=== PATIENT | female | born 1940 | race Caucasian/White ===

== ENCOUNTER 2016-07-19 17:15 | Emergency (ER) | payer MEDICARE, BC ==
--- NOTE | 2016-07-19 17:51 | RAD ---
HISTORY: Chest pain COMPARISONS: March 15, 2016 VIEWS:1: Single frontal portable view of the chest at 5:27 PM FINDINGS: LINES AND TUBES: None. CARDIOMEDIASTINAL SILHOUETTE: The cardiac silhouette is enlarged. The cardiomediastinal silhouette is otherwise normal for portable technique. PLEURA: The costophrenic angles are sharp. No pleural abnormalities are noted. LUNG PARENCHYMA: There is hyperinflation. ABDOMEN: The upper abdomen is clear. There is no subphrenic gas. BONES AND SOFT TISSUES: The patient is status post median sternotomy. IMPRESSION: 1. CARDIOMEGALY. 2. COPD. 3. NO ACTIVE CARDIOPULMONARY DISEASE
[2016-07-19 17:55] LABS: Hematocrit 38 % (35-47); Hemoglobin 12.6 g/dl (12.0-16.0); Mean Corpuscular HGB Conc 33 g/dl (31-36); Mean Corpuscular Hemoglobin 29 pg (27-31); Mean Corpuscular Volume 88 fL (80-97); Mean Platelet Volume 9 um3 (7.4-10.4); Red Blood Count 4.29 10^6/ul (4.0-5.4); Red Cell Distribution Width 13 % (10.5-15); White Blood Count 4.6 10^3/ul (3.5-10.8)
[2016-07-19 18:11] LABS: Albumin 3.8 g/dL (3.2-5.2); Calcium 9.5 mg/dL (8.6-10.3); EGFR African American 107.6 (>60); EGFR Non-African American 83.7 (>60); Globulin 2.3 g/dL (2-4); Magnesium 1.8 mg/dL (1.9-2.7); Total Bilirubin 1.5 mg/dL (0.2-1.0); Total Protein 6.1 g/dL (6.4-8.9)
[2016-07-19 18:46] LABS: T4 7.94 g/dL (6.09-12.23)
[2016-07-19 18:47] LABS: TSH (Thyroid Stimulating Horm) 1.58 mcIU/mL (0.34-5.60)
[2016-07-19 22:10] VITALS: BP 111/45
--- NOTE | 2016-07-19 22:14 | ED ---
Manan Romero Billy, scribed for Blaine Ayala MD on 07/19/16 at 1747 . HPI Chest Pain - HPI Summary HPI Summary: Patient is a 76 year-old female BIBA to [facility] with constant midsternal chest pain starting at 1630 today. 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 She reports feeling dizzy at onset but denies any nausea, SOB, or near-syncope. She also reports EVANS after taking NTG. She was being seen in [place] earlier today for a nuclear stress test which was positive; she was instructed to follow up with her filbert grower, Dr. Arriaga, in 3 days. PMHx of CAD. - History of Current Complaint Chief Complaint: EDChestPainROMI Time Seen by Provider: 07/19/16 17:19 Hx Obtained From: Patient Time of Onset: 16:30 Timing: Constant Initial Severity: Moderate Current Severity: Moderate Chest Pain Location: Mid Sternal Chest Pain Radiates: No Aggravating Factor(s): Nothing Alleviating Factor(s): Medication - ASA, NTG 123 Associated Signs and Symptoms: Positive: Headaches, Dizziness. Negative: Shortness of Breath, Syncope, Nausea - Additional Pertinent History Primary Care Physician: SALAS - Allergy/Home Medications Allergies/Adverse Reactions: Allergies Allergy/AdvReac Type Severity Reaction Status Date / Time Sulfa Drugs Allergy Intermediate Rash Verified 03/15/16 01:42 Adhesive Tape Allergy Rash And Verified 03/15/16 01:43 Itching Aspirin AdvReac Intermediate Stomach Verified 03/15/16 01:42 Cramps LUBRICANT Allergy See Comment Uncoded 03/15/16 01:42 Home Medications: Home Medications Cholecalciferol [Vitamin D] 1,000 unit PO DAILY 07/19/16 [History Confirmed 03/25] Dipyridamole/Aspirin 25/200* [Aggrenox 25/200*] 1 cap.er PO BID 07/19/16 [ History Confirmed 07/19/16] Fluticasone-Salmeterol 100-50* [Advair Diskus 100-50*] 1 puff INH BID 07/19/16 [ History Confirmed 07/19/16] Mometasone NASAL (NF) [Nasonex (NF)] 1 spray BOTH NARES DAILY 07/19/16 [History Confirmed 07/19/16] Pantoprazole TAB (NF) [Protonix TAB (NF)] 40 mg PO DAILY 07/19/16 [History Confirmed 07/19/16] PMH/Surg Hx/FS Hx/Imm Hx Endocrine/Hematology History: Denies: Hx Diabetes Cardiovascular History: Reports: Hx Coronary Artery Disease, Hx Hypercholesterolemia, Hx Hypertension, Hx Valvular Heart Disease, Other Cardiovascular Problems/Disorders - MS, mitral valve replacement Denies: Hx Congestive Heart Failure, Hx Pacemaker/ICD Respiratory History: Reports: Hx Asthma GI History: Reports: Hx Gastrointestinal Bleed, Other GI Disorders - peptic ulcer disease History: Reports: Other Problems/Disorders - left kidney ca-tumor removed Denies: Hx Renal Disease Musculoskeletal History: Reports: Hx Arthritis Sensory History: Reports: Hx Contacts or Glasses Denies: Hx Hearing Aid Opthamlomology History: Reports: Hx Contacts or Glasses Neurological History: Reports: Hx Transient Ischemic Attacks (TIA) Psychiatric History: Denies: Hx Panic Disorder - Cancer History Cancer Type, Location and Year: left kidney 2006, tumor removed - Surgical History Surgery Procedure, Year, and Place: MITRAL VALVE REPAIR, appendectomy, CABG, tonsillectomy, LUMPECTOMY, KIDNEY SURGERY, partial hysterectomy,SINUS - Immunization History Date of Influenza Vaccine: fall 2014 Infectious Disease History: No Infectious Disease History: Reports: Hx Shingles Denies: Traveled Outside the US in Last 30 Days - Family History Known Family History: Positive: Cardiac Disease - Social History Alcohol Use: None Substance Use Type: Reports: None Hx Tobacco Use: No Smoking Status (MU): Never Smoked Tobacco Review of Systems Positive: Chest Pain Negative: Shortness Of Breath Negative: Nausea Neurological: Other - dizziness Positive: Headache. Negative: Syncope All Other Systems Reviewed And Are Negative: Yes Physical Exam - Summary Physical Exam Summary: VITAL SIGNS: Reviewed. GENERAL: Patient is a well developed and nourished female who is lying comfortable in the stretcher. Patient is not in any acute respiratory distress. HEAD AND FACE: No signs of trauma. No ecchymosis, hematomas or skull depressions. No sinus tenderness. EYES: PERRLA, EOMI x 2, No injected conjunctiva, no nystagmus. EARS: Hearing grossly intact. Ear canals and tympanic membranes are within normal limits. MOUTH: Oropharynx within normal limits. NECK: Supple, trachea is midline, no adenopathy, no JVD, no carotid bruit, no c- spine tenderness, neck with full ROM. CHEST: Symmetric, no tenderness at palpation LUNGS: Clear to auscultation bilaterally. No wheezing or crackles. CVS: Regular rate and rhythm, S1 and S2 present, no murmurs or gallops appreciated. ABDOMEN: Soft, non-tender. No signs of distention. No rebound no guarding, and no masses palpated. Bowel sounds are normal. EXTREMITIES: FROM in all major joints, no edema, no cyanosis or clubbing. NEURO: Alert and oriented x 3. No acute neurological deficits. Speech is normal and follows commands. SKIN: Dry and warm Triage Information Reviewed: Yes Vital Signs On Initial Exam: Initial Vitals Temp Pulse Resp BP Pulse Ox 97.6 F 64 12 146/77 98 07/19/16 17:30 07/19/16 17:30 07/19/16 17:30 07/19/16 17:30 07/19/16 17:30 Vital Signs Reviewed: Yes Diagnostics - Vital Signs Vital Signs Temp Pulse Resp BP Pulse Ox 07/19/16 17:30 97.6 F 64 12 146/77 98 - Laboratory Lab Results: Lab Results 07/19/16 07/19/16 Range/Units 17:40 17:40 WBC 4.6 (3.5-10.8) 10^3/ul RBC 4.29 (4.0-5.4) 10^6/ul Hgb 12.6 (12.0-16.0) g/dl Hct 38 (35-47) % MCV 88 (80-97) fL MCH 29 (27-31) pg MCHC 33 (31-36) g/dl RDW 13 (10.5-15) % Plt Count 149 L (150-450) 10^3/ul MPV 9 (7.4-10.4) um3 Neut % (Auto) 53.2 (38-83) % Lymph % (Auto) 32.4 (25-47) % [place] % (Auto) 9.9 H (1-9) % Eos % (Auto) 3.8 (0-6) % Baso % (Auto) 0.7 (0-2) % Absolute Neuts (auto) 2.5 (1.5-7.7) 10^3/ul Absolute Lymphs (auto) 1.5 (1.0-4.8) 10^3/ul Absolute Monos (auto) 0.5 (0-0.8) 10^3/ul Absolute Eos (auto) 0.2 (0-0.6) 10^3/ul Absolute Basos (auto) 0 (0-0.2) 10^3/ul Absolute Nucleated RBC 0 10^3/ul Nucleated RBC % 0.1 INR (Anticoag Therapy) 0.91 (0.89-1.11) Result Diagrams: 07/19/16 17:40 07/19/16 17:40 Lab Statement: Any lab studies that have been ordered have been reviewed, and results considered in the medical decision making process. - Radiology CXR Radiology Interpretation Completed By: Radiologist - Cardiomegaly. COPD. No acute cardiopulmonary disease. - EKG 1726 EKG Interpretation: NSR 63 bpm, no ST elevation Chest Pain Course/Dx - Course Assessment/Plan: Patient is a 76 year-old female BIBA to [facility] with constant midsternal chest pain starting at 1630 today. 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 She reports feeling dizzy at onset but denies any nausea, SOB, or near-syncope. She also reports EVANS after taking NTG. She was being seen in [place] earlier today for a nuclear stress test which was positive; she was instructed to follow up with her filbert grower, Dr. Arriaga, in 3 days. PMHx of CAD. Bloodwork WNL. Magnesium of 1.8 for which pt was given magnesium. Trop #1 and trop #2 are both 0.00. CXR shows cardiomegaly, COPD, no acute cardiopulmonary disease. The patient already has NTG at home and has an appointment with cardiology on Friday. Therefore pt will be discharged to follow up with cardiology on Friday. She was instructed to avoid exertion, and that if she is to develop chest pain, shortness of breath, nausea, vomiting, or diaphoresis, she is to return immediately for further workup and management. She is hemodynamically stable, A&Ox3. - Chest Pain Differential Diagnosis/HQI/PQRI: Acute MS, ACS, Angina, CHF, Chest Wall, GI Disease, Lower Respiratory Infection - Diagnoses Provider Diagnoses: Chest pain, Angina effort Discharge - Discharge Plan Condition: Stable Disposition: HOME Patient Education Materials: Chest Pain (ED) Referrals: Eveline Gordon MD [Primary Care Provider] - The documentation as recorded by the Manan de la vega Billy accurately reflects the service I personally performed and the decisions made by , Blaine Ayala MD.
== END 2016-07-19 22:20 | disposition home or self-care (01) ==
LOC: ED 17:15
DX: R07.9 Chest pain, unspecified (principal); I20.8 Other forms of angina pectoris; I51.7 Cardiomegaly; R51 Headache; J44.9 Chronic obstructive pulmonary disease, unspecified; R42 Dizziness and giddiness; R06.02 Shortness of breath
CPT/HCPCS: 36415; 71010; 80053; 82550; 82553; 83735; 83874; 83880; 84436; 84443; 84484; 85025; 85610; 93005; 99283

== ENCOUNTER 2016-10-20 02:14 | Observation (INO) | payer MEDICARE, BC ==
[2016-10-20] MEDS ORDERED: Aspirin Low Dose CHEW TAB* 81 MG PO ONE (02:22)
[2016-10-20 02:55] LABS: Hematocrit 35 % (35-47); Hemoglobin 11.6 g/dl (12.0-16.0); Mean Corpuscular HGB Conc 33 g/dl (31-36); Mean Corpuscular Hemoglobin 28 pg (27-31); Mean Corpuscular Volume 86 fL (80-97); Mean Platelet Volume 10 um3 (7.4-10.4); Red Blood Count 4.09 10^6/ul (4.0-5.4); Red Cell Distribution Width 15 % (10.5-15); White Blood Count 5.8 10^3/ul (3.5-10.8)
[2016-10-20 03:08] LABS: BUN/Creatinine Ratio 26.4 (8-20); Calcium 9.4 mg/dL (8.6-10.3); EGFR African American 143.5 (>60); EGFR Non-African American 111.6 (>60); Globulin 2.5 g/dL (2-4); Potassium 3.8 mmol/L (3.5-5.0); Total Bilirubin 1.4 mg/dL (0.2-1.0); Total Protein 6.5 g/dL (6.4-8.9)
[2016-10-20] MEDS ORDERED: NS 0.9% 1000 ML* 1,000 ML IV SCH (03:15)
--- NOTE | 2016-10-20 04:43 | ED ---
Manan Romero Billy, scribed for Jarocho Pantoja MD on 10/20/16 at 0231 . Palpitations / Dysrhythmia - HPI Summary HPI Summary: Patient is a 76 year-old female with an extensive cardiac history coming to [facility] for evaluation of palpitations and chest tightness today. She took 1x NTG at 0010 and another at 0025. Her chest tightness has resolved, but her palpitations continue. She says that she can "feel her heart beating in her neck and jaw." Patient just returned to [place] from [place] after a four-day road trip. - History of Current Complaint Chief Complaint: EDDysrhythmPalp Time Seen by Provider: 10/20/16 02:16 Hx Obtained From: Patient, EMS Onset/Duration: Gradual Onset, Lasting Hours Timing: Intermittent Episodes Lasting: Severity Initially: Moderate Severity Currently: Moderate Character: Irregular Aggravating: Nothing Alleviating: Medication - NTG improved chest tightness Associated Signs & Symptoms: Chest Pain - tightness - Allergy/Home Medications Allergies/Adverse Reactions: Allergies Allergy/AdvReac Type Severity Reaction Status Date / Time Sulfa Drugs Allergy Intermediate Rash Verified 10/20/16 02:27 Adhesive Tape Allergy Rash And Verified 10/20/16 02:27 Itching LUBRICANT Allergy See Comment Uncoded 10/20/16 02:27 Home Medications: Home Medications Atenolol [Tenormin 25 MG] 50 mg PO DAILY 10/20/16 [History Confirmed 10/20/16] Atorvastatin* [Lipitor*] 80 mg PO 1700 10/20/16 [History Confirmed 10/20/16] PMH/Surg Hx/FS Hx/Imm Hx Endocrine/Hematology History: Denies: Hx Diabetes Cardiovascular History: Reports: Hx Coronary Artery Disease, Hx Hypercholesterolemia, Hx Hypertension, Hx Valvular Heart Disease, Other Cardiovascular Problems/Disorders - MS, mitral valve replacement Denies: Hx Congestive Heart Failure, Hx Pacemaker/ICD Respiratory History: Reports: Hx Asthma GI History: Reports: Hx Gastrointestinal Bleed, Other GI Disorders - peptic ulcer disease History: Reports: Other Problems/Disorders - left kidney ca-tumor removed Denies: Hx Renal Disease Musculoskeletal History: Reports: Hx Arthritis Sensory History: Reports: Hx Contacts or Glasses Denies: Hx Hearing Aid Opthamlomology History: Reports: Hx Contacts or Glasses Neurological History: Reports: Hx Transient Ischemic Attacks (TIA) Psychiatric History: Denies: Hx Panic Disorder - Cancer History Cancer Type, Location and Year: left kidney 2006, tumor removed - Surgical History Surgery Procedure, Year, and Place: MITRAL VALVE REPAIR, appendectomy, CABG, tonsillectomy, LUMPECTOMY, KIDNEY SURGERY, partial hysterectomy,SINUS - Immunization History Date of Influenza Vaccine: fall 2014 Infectious Disease History: Reports: Hx Shingles Denies: Traveled Outside the US in Last 30 Days - Family History Known Family History: Positive: Cardiac Disease - Social History Alcohol Use: None Substance Use Type: Reports: None Hx Tobacco Use: No Smoking Status (MU): Never Smoked Tobacco Review of Systems Negative: Fever Positive: Palpitations, Chest Pain All Other Systems Reviewed And Are Negative: Yes Physical Exam Triage Information Reviewed: Yes Vital Signs On Initial Exam: Initial Vitals Temp Pulse Resp BP Pulse Ox 97.6 F 67 16 118/73 94 10/20/16 02:15 10/20/16 02:15 10/20/16 02:15 10/20/16 02:15 10/20/16 02:15 Vital Signs Reviewed: Yes Appearance: Positive: Well-Appearing, Pain Distress - mild discomfort Skin: Positive: Warm Head/Face: Positive: Normal Head/Face Inspection Eyes: Positive: KARLA ENT: Positive: Hearing grossly normal Neck: Positive: Supple Respiratory/Lung Sounds: Positive: Clear to Auscultation, Breath Sounds Present Cardiovascular: Positive: RRR - with frequent extrasystoles Abdomen Description: Positive: Nontender, Soft Bowel Sounds: Positive: Present Neurological: Positive: Sensory/Motor Intact, Alert, Oriented to Person Place, Time Psychiatric: Positive: Affect/Mood Appropriate Diagnostics - Vital Signs Vital Signs Temp Pulse Resp BP Pulse Ox 10/20/16 02:15 97.6 F 67 16 118/73 94 - Laboratory Lab Results: Lab Results 10/20/16 10/20/16 10/20/16 Range/Units 02:27 02:27 02:27 WBC 5.8 (3.5-10.8) 10^3/ul RBC 4.09 (4.0-5.4) 10^6/ul Hgb 11.6 L (12.0-16.0) g/dl Hct 35 (35-47) % MCV 86 (80-97) fL MCH 28 (27-31) pg MCHC 33 (31-36) g/dl RDW 15 (10.5-15) % Plt Count 145 L (150-450) 10^3/ul MPV 10 (7.4-10.4) um3 Neut % (Auto) 57.4 (38-83) % Lymph % (Auto) 30.9 (25-47) % [place] % (Auto) 8.9 (1-9) % Eos % (Auto) 2.2 (0-6) % Baso % (Auto) 0.6 (0-2) % Absolute Neuts (auto) 3.4 (1.5-7.7) 10^3/ul Absolute Lymphs (auto) 1.8 (1.0-4.8) 10^3/ul Absolute Monos (auto) 0.5 (0-0.8) 10^3/ul Absolute Eos (auto) 0.1 (0-0.6) 10^3/ul Absolute Basos (auto) 0 (0-0.2) 10^3/ul Absolute Nucleated RBC 0 10^3/ul Nucleated RBC % 0 D-Dimer, Quantitative < 200 (Less Than 230) ng/mL Sodium 140 (133-145) mmol/L Potassium 3.8 (3.5-5.0) mmol/L Chloride 105 (101-111) mmol/L Carbon Dioxide 29 (22-32) mmol/L Anion Gap 6 (2-11) mmol/L BUN 14 (6-24) mg/dL Creatinine 0.53 (0.51-0.95) mg/dL Est GFR ( Amer) 143.5 (>60) Est GFR (Non-Af Amer) 111.6 (>60) BUN/Creatinine Ratio 26.4 H (8-20) Glucose 119 H (70-100) mg/dL Lactic Acid (0.5-2.0) mmol/L Calcium 9.4 (8.6-10.3) mg/dL Magnesium 2.0 (1.9-2.7) mg/dL Total Bilirubin 1.40 H (0.2-1.0) mg/dL AST 20 (13-39) U/L ALT 16 (7-52) U/L Alkaline Phosphatase 80 (34-104) U/L Troponin I 0.00 (<0.04) ng/mL Total Protein 6.5 (6.4-8.9) g/dL Albumin 4.0 (3.2-5.2) g/dL Globulin 2.5 (2-4) g/dL Albumin/Globulin Ratio 1.6 (1-3) / Range/Units 02:27 WBC (3.5-10.8) 10^3/ul RBC (4.0-5.4) 10^6/ul Hgb (12.0-16.0) g/dl Hct (35-47) % MCV (80-97) fL MCH (27-31) pg MCHC (31-36) g/dl RDW (10.5-15) % Plt Count (150-450) 10^3/ul MPV (7.4-10.4) um3 Neut % (Auto) (38-83) % Lymph % (Auto) (25-47) % [place] % (Auto) (1-9) % Eos % (Auto) (0-6) % Baso % (Auto) (0-2) % Absolute Neuts (auto) (1.5-7.7) 10^3/ul Absolute Lymphs (auto) (1.0-4.8) 10^3/ul Absolute Monos (auto) (0-0.8) 10^3/ul Absolute Eos (auto) (0-0.6) 10^3/ul Absolute Basos (auto) (0-0.2) 10^3/ul Absolute Nucleated RBC 10^3/ul Nucleated RBC % D-Dimer, Quantitative (Less Than 230) ng/mL Sodium (133-145) mmol/L Potassium (3.5-5.0) mmol/L Chloride (101-111) mmol/L Carbon Dioxide (22-32) mmol/L Anion Gap (2-11) mmol/L BUN (6-24) mg/dL Creatinine (0.51-0.95) mg/dL Est GFR ( Amer) (>60) Est GFR (Non-Af Amer) (>60) BUN/Creatinine Ratio (8-20) Glucose (70-100) mg/dL Lactic Acid 1.5 (0.5-2.0) mmol/L Calcium (8.6-10.3) mg/dL Magnesium (1.9-2.7) mg/dL Total Bilirubin (0.2-1.0) mg/dL AST (13-39) U/L ALT (7-52) U/L Alkaline Phosphatase (34-104) U/L Troponin I (<0.04) ng/mL Total Protein (6.4-8.9) g/dL Albumin (3.2-5.2) g/dL Globulin (2-4) g/dL Albumin/Globulin Ratio (1-3) Result Diagrams: 10/20/16 02:27 10/20/16 02:27 Lab Statement: Any lab studies that have been ordered have been reviewed, and results considered in the medical decision making process. - Radiology CXR Xray Interpretation: No Acute Changes Radiology Interpretation Completed By: ED Physician - EKG 213 EKG Interpretation: NSR 67 bpm, frequent PVCs Re-Evaluation - Re-Evaluation First Eval Re-Evaluation Time: 06:26 Change: Worse Comment: Patient complains of worsening chest pain 4/10 at this time. Plan for admission discussed. Course/Dx - Diagnoses Provider Diagnoses: Palpitations, ACS (acute coronary syndrome) - Physician Notifications Discussed Care Of Patient With: Dr. Larsen (hospitalist) at 0630: accepts admission. Instructed by Provider To: Admit As Inpatient Discharge - Discharge Plan Condition: Fair Disposition: ADMITTED TO [facility] Referrals: Eveline Gordon MD [Primary Care Provider] - The documentation as recorded by the Manan de la vega Billy accurately reflects the service I personally performed and the decisions made by me, Jarocho Pantoja MD.
[2016-10-20] MEDS ORDERED: Nitroglycerin TAB 0.4 MG* 0.4 MG TAB SL ONE (06:26)
--- NOTE | 2016-10-20 07:39 | RAD ---
INDICATION: Chest pain. COMPARISON: Comparison is made with prior chest x-ray studies from March 15, 2016 and July 19, 2016. TECHNIQUE: Dual-energy PA and lateral views of the chest were obtained. FINDINGS: The patient is status post sternotomy and coronary artery bypass surgery. The heart is moderately enlarged and unchanged from the prior exam. There is mild prominence of the interstitial markings which are unchanged. The lungs are otherwise clear. No pleural effusion is seen. IMPRESSION: 1. CARDIOMEGALY, UNCHANGED, NO EVIDENCE FOR ACUTE FINDING. 2. POST SURGICAL CHANGES.
[2016-10-20] MEDS ORDERED: Acetaminophen TAB* 325 MG PO PRN (08:54)
[2016-10-20] MEDS ORDERED: Albuterol HFA INHALER* 8 gm MDI INH PRN (08:56)
[2016-10-20] MEDS ORDERED: Potassium Chlor TAB* 20 MEQ TAB.ER PO ONE (08:56)
[2016-10-20] MEDS: Mometasone/Formoter 100/5 MDI INH SCH ×2 (10:23→21:25)
[2016-10-20] MEDS: Valsartan TAB* 160 MG PO SCH (10:25)
[2016-10-20] MEDS: Dipyridamole/Aspirin 25/200* CAP.ER PO SCH ×2 (10:25→20:45)
[2016-10-20] MEDS: Isosorbide Mononitrate ER TAB* 30 MG PO SCH (10:25)
[2016-10-20] MEDS: Atenolol TAB* 25 MG PO SCH (10:25)
--- NOTE | 2016-10-20 13:12 | HP ---
HISTORY AND PHYSICAL: DATE OF ADMISSION: 10/20/16 PRIMARY CARE PHYSICIAN: Dr. Gordon CHIEF COMPLAINT: Chest pain and palpitations. HISTORY OF PRESENT ILLNESS: Ivelisse Reddy is a 76-year-old female with history of coronary artery disease, status post coronary artery bypass grafting and mitral valve repair in 2005 at [facility] in [place], [place], who also had recent cardiac catheterization, which, as per the patient, was negative in June 2016 at a [facility] and who presents today complaining of chest pain and palpitations. The patient stated that she just returned from a 4-day trip from [place] to [facility]. They drove approximately 2 days. She stated that they just got out of the car and they had dinner and then they were ready to go to bed when she started experiencing palpitations. She stated that her heart beating was faster and it would go in "threes". It would beat three times, then there would be a break, and it would beat three times again. She also experienced some substernal pressure when it was occurring. She denies any shortness of breath. The episode last approximately an [id number] and when she presented to the emergency department she was noted to be in bigeminy. Her troponin were negative x2 and when she was just ready to be discharged from the emergency department, she again experienced PVCs. She is going to be placed on observation with a diagnosis of palpitations and chest pain. PAST MEDICAL HISTORY: 1. History of coronary artery disease, status post coronary artery bypass grafting in 2005 as well as mitral valve repair. Cardiac catheterization in June 2016 was, as per patient, negative. 2. History of asthma. 3. Hypertension. 4. Dyslipidemia. 5. Renal cell carcinoma, status post partial nephrectomy. 6. Peptic ulcer disease, history of GI bleed in 2004. 7. History of TIA. 8. Benign breast lumpectomy. MEDICATIONS: Include: 1. Advair 100/50 mcg 1 inhalation twice a day. 2. Aspirin with dipyridamole 25/200 mg two times a day. 3. Atenolol 50 mg daily. 4. Atorvastatin 80 mg daily. 5. Pantoprazole 40 mg daily. 6. Singulair 10 mg daily. 7. Valsartan 150 mg b.i.d. 8. Vitamin D3 1000 units. 9. Imdur 30 mg daily. ALLERGIES: Include SULFA and TAPE. Patient stated that daily dose of ASPIRIN causes her GI upset, but she had been on dipyridamole without any problems. FAMILY HISTORY: Positive for both parents with history of heart disease. The patient's brother had an PA at the age of 38. SOCIAL HISTORY: The patient denies any tobacco, alcohol or drug use. 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 REVIEW OF SYSTEMS: Please see history of present illness. In addition to the above mentioned, the patient stated that she had been fatigued in the last part of her road. She stated that they got stuck in traffic in the last 24 hours of their travel was "not pleasant." Apart from being fatigued, she denies any other problems. She stated that in the past she would have an irregular heart rate like the same one that she came in with today, but it would never last longer than minutes. The remaining 14 systems were reviewed with the patient and were otherwise negative. Please also note that currently the patient denies any chest pain or palpitations. PHYSICAL EXAMINATION GENERAL: Patient is a very pleasant 76-year-old female, who is in no acute distress. Alert, awake, and oriented x3. VITAL SIGNS: Blood pressure of 126/105, heart rate of 80 and regular, respiratory rate 12, oxygen saturation 95% on room air, and temperature 98.2. HEENT: Head is atraumatic, normocephalic. Eyes: Pupils are equal and reactive to light and accommodation. Oropharynx is clear. Mucosa is moist. NECK: Supple. No JVD. No bruits bilaterally. RESPIRATORY: Clear to auscultation bilaterally. CARDIOVASCULAR: Regular rate and rhythm. No murmur. ABDOMEN: Soft, nontender. Bowel sounds present in all 4 quadrants. EXTREMITIES: There is no edema. Pulses +2 bilaterally. No clubbing or cyanosis. There is no calf tenderness on evaluation. NEUROLOGIC: Speech is clear. Cranial nerves II through XII are grossly intact. Motor strength is 5/5 bilaterally. SKIN: On evaluation of the skin, no ecchymotic areas or rashes noted. LABORATORY DATA: D-dimer of below 200. Sodium of 140, potassium 3.8, chloride of 105, carbon dioxide 29, BUN 14, creatinine 0.5. Liver function tests are unremarkable. Magnesium of 2.0. Total bilirubin of 1.4. Troponin of 0 and 0.01. CBC: White blood cell count of 5.8, hemoglobin 11.6, hematocrit of 33.5, and platelets of 145. Portable chest x-ray, impression: "Cardiomegaly, unchanged. No evidence of acute findings." The patient's initial EKG obtained at 2 a.m. showed ventricular bigeminy with a heart rate of 67 beats per minute. Repeat EKG at 6:26 a.m. today showed normal sinus rhythm with a heart rate of 83 beats per minute, with 1 PVC, and no ST changes. ASSESSMENT AND PLAN: The patient presented with palpitations and substernal pressure. I suspect that she was symptomatic of PVCs with ventricular bigeminy. The patient stated that she had a negative cardiac stress test in June 2016, which we are going to try to obtain from [facility] medical records. For the time being, I will optimize her potassium level by giving her one dose of 20 mEq of potassium. The patient's magnesium is fine. The patient is going to be observed on telemetry monitored bed to evaluate for possibility of V- tach. I suspect the patient just experienced symptoms of ventricular bigeminy may be because she was tired. Her d-dimer is unremarkable and she does not need any further evaluation for PE at this point. I will obtain a third troponin at this point. In regards to the patient's history of heart disease, the patient's aspirin and dipyridamole are going to be continued, as well as atenolol. In regards to the patient's asthma, it is not in exacerbation, and her Advair is going to be continued. For hypertension, valsartan and atenolol is going to be continued. For DVT prophylaxis, the patient is going to be placed on heparin subcutaneously. TIME SPENT: Approximately 65 minutes were spent on admission of this patient, more than half that time was spent [id number] with the patient, doing the interview and physical exam. CC: Dr. Gordon* [id number]/[facility] #: [id number] [place]
[2016-10-20] MEDS: Heparin VIAL(*) 5000 UNITS/ML VIAL (FIVE THOUSAND) SUBCUT SCH ×2 (16:24→20:46)
[2016-10-20] MEDS ORDERED: Atorvastatin* 80 MG TAB PO SCH (17:00)
[2016-10-21] MEDS: Heparin VIAL(*) 5000 UNITS/ML VIAL (FIVE THOUSAND) SUBCUT SCH (05:41)
[2016-10-21 07:11] LABS: BUN/Creatinine Ratio 23.8 (8-20); Calcium 9.3 mg/dL (8.6-10.3); EGFR African American 117.5 (>60); EGFR Non-African American 91.4 (>60); Magnesium 1.9 mg/dL (1.9-2.7); Potassium 4.1 mmol/L (3.5-5.0)
[2016-10-21] MEDS: Mometasone/Formoter 100/5 MDI INH SCH (08:46)
[2016-10-21] MEDS: Dipyridamole/Aspirin 25/200* CAP.ER PO SCH (09:35)
[2016-10-21] MEDS: Atenolol TAB* 25 MG PO SCH (09:35)
[2016-10-21] MEDS: Valsartan TAB* 160 MG PO SCH (09:35)
[2016-10-21] MEDS: Isosorbide Mononitrate ER TAB* 30 MG PO SCH (09:35)
[2016-10-21 11:28] VITALS: BP 104/58
--- NOTE | 2016-10-21 12:19 | ECHO ---
Patient: FRANCISCO DUQUE [facility] Rec#: [id number] : 1940 Date: 10/21/2016 Age: 76y Height: 149.9 cm / 59.0 in Weight: 52.6 kg / 115.9 lbs Sex: F BSA: 1.5 Room#: 431 Admit Date#: 10/20/2016 Type: Inpatient Referring: Bere Lafleur MD Reading: Prosper Kaba MD News Camera Operator: Lexy Panda RN RDCS CC: Eveline Gordon MD Transthoracic Echocardiogram Indication: Chest pain, PVCs BP: 141/73 HR: 74 Rhythm: NSR with PVCs Findings History: CAD, CABG, MV repair, HTN, HLD, asthma, TIA, renal cell carcinoma, GI bleed Technical Comments: The study quality is fair. Left Ventricle: The left ventricular chamber size is decreased. Mild to moderate concentric left ventricular hypertrophy is observed. There is increased basal septal hypertrophy noted without evidence of an increased gradient across the left ventricular outflow tract. Global left ventricular wall motion and contractility are within normal limits. The left ventricle appears hyperdynamic. The estimated ejection fraction is greater than 65%. There is no consistent Doppler evidence of clinically significant diastolic dysfunction. Left Atrium: The left atrial chamber size is normal. Right Ventricle: The right ventricular cavity size is normal. The right ventricular global systolic function is normal. Right Atrium: The right atrial cavity size is normal. Aortic Valve: The aortic valve is trileaflet. The aortic valve leaflets are mildly thickened. There is mild aortic regurgitation. There is borderline aortic stenosis present. Mitral Valve: There is mild mitral regurgitation. Mitral valve repair functioning normally. Tricuspid Valve: The tricuspid valve leaflets are normal. There is mild tricuspid regurgitation. No pulmonary hypertension is noted. Pulmonic Valve: The pulmonic valve appears normal. There is a trace pulmonic regurgitation. There is no pulmonic stenosis. Pericardium: There is no significant pericardial effusion. A pericardial fat pad is visualized. Aorta: There is no dilatation of the ascending aorta. There is no dilatation of the aortic arch. There is no dilation of the aortic root. Pulmonary Artery: The main pulmonary artery appears normal. Venous: The inferior vena cava appears normal in size. There is a greater than 50% respiratory change in the inferior vena cava dimension. Summary: There are no significant changes when compared to the previous study done on 02/25/16 Conclusions Mild to moderate concentric left ventricular hypertrophy is observed. There is increased basal septal hypertrophy noted without evidence of an increased gradient across the left ventricular outflow tract. Global left ventricular wall motion and contractility are within normal limits. The estimated ejection fraction is greater than 65%. The right ventricular global systolic function is normal. The aortic valve leaflets are mildly thickened. There is mild aortic regurgitation. There is mild mitral regurgitation. Mitral valve repair functioning normally. There is mild tricuspid regurgitation. No pulmonary hypertension is noted. There is no significant pericardial effusion. There are no significant changes when compared to the previous study done on 02/25/16 Measurements Name Value Normal Range RVDdMajor (2D) 3.9 cm (2.2 - 4.4) RAd ISD 4CH 4 cm (3.4 - 4.9) RA (A4C)W 3.5 cm (2.9 - 4.6) IVSd (2D) 1.3 cm (0.6 - 1) LVPWd (2D) 1.2 cm (0.6 - 1) LVIDd (2D) 3.2 cm (3.6 - 5.4) LVIDs (2D) 1.6 cm - LV FS (2D) 48 % (25 - 45) Aortic Annulus 2.1 cm (1.4 - 2.6) Ao root diameter (2D) 3.1 cm (2.1 - 3.5) Ascending Ao 3.1 cm (2.1 - 3.4) Aortic arch 1.9 cm (1.8 - 3.4) LA dimension (AP) 2D 3.1 cm (2.3 - 3.8) LAd ISD 4CH 4.4 cm (2.9 - 5.3) LA ISD 4CH W 3.8 cm (2.5 - 4.5) Name Value Normal Range LA ESV SP 4CH (A/L) 32 ml - LA ESV SP 2CH (A/L) 60 ml - LA ESV BP (A/L) 46 ml - LA ESV BP (A/L) index 32 ml/m2 - LA ESV SP 4CH (MOD) 30 ml - LA ESV SP 2CH (MOD) 57 ml - Name Value Normal Range MV E-wave Vmax 1.1 m/sec - MV deceleration time 295 msec - MV A-wave Vmax 1.2 m/sec - MV E:A ratio 0.9 ratio - LV septal e' Vmax 0.06 m/sec - LV lateral e' Vmax 0.1 m/sec - LV E:e' septal ratio 18.3 ratio - LV E:e' lateral ratio 11 ratio - Name Value Normal Range AV Vmax 1.3 m/sec - AV VTI 35.8 cm - AV peak gradient 6.6 mmHg - AV mean gradient 3.6 mmHg - LVOT diameter 2 cm - LVOT Vmax 0.77 m/sec - LVOT VTI 24.5 cm - LVOT peak gradient 2.4 mmHg - LVOT mean gradient 1.2 mmHg - DOI (VTI) 0.68 ratio - DOI (Vmax) 0.59 ratio - FRANK (continuity Vmax) 1.9 cm2 - FRANK (continuity VTI) 2.1 cm2 - MIGUEL Vmax 0.63 m/sec - Name Value Normal Range MV Vmax 1.2 m/sec - MV VTI 38.6 cm - MV peak gradient 5.7 mmHg - MV mean gradient 2.5 mmHg - MV PHT 85 msec - MVA (PHT) 2.6 cm2 - MVA (continuity VTI) 2.1 cm2 - Name Value Normal Range TR Vmax 2.7 m/sec - TR peak gradient 29 mmHg - RAP 3 mmHg - RVSP 32 mmHg - Name Value Normal Range PV Vmax 0.63 m/sec -
--- NOTE | 2016-10-22 00:41 | DS ---
DISCHARGE SUMMARY: DATE OF ADMISSION: 10/20/16 DATE OF DISCHARGE: 10/21/16 PRIMARY CARE PROVIDER: Eveline Gordon MD CARE MANAGER CNA: Dr. Abdullahi. DISCHARGE DIAGNOSES: 1. Palpitations due to ventricular bigeminy. 2. Frequent premature ventricular contractions. SECONDARY DIAGNOSES: 1. History of coronary artery disease status post coronary artery bypass grafting in 2005 as well as mitral valve repair. The patient's last cardiac catheterization was documented in July 2016 at [place], [place] that showed single-vessel coronary artery disease with known occluded right coronary artery with patent vein graft to the right posterior descending artery. Mild disease in the left anterior descending artery and the left circumflex up to 30 % stenosis. 2. Mildly elevated left ventricular diastolic pressures. 3. History of asthma. 4. History of hypertension. 5. Dyslipidemia. 6. Renal cell carcinoma, status post partial nephrectomy. 7. Peptic ulcer disease, history of GI bleed in 2004. 8. History of transient ischemic attack. 9. History of benign breast lumpectomy. MEDICATIONS AT DISCHARGE: Unchanged from admission and include: 1. Advair 100/50 mcg twice a day. 2. Aspirin/dipyridamole 1 tablet twice a day. 3. Atenolol 50 mg daily. 4. Atorvastatin 80 mg daily. 5. Mometasone 50 mcg daily. 6. Singulair 10 mg daily. 7. Valsartan 150 mg twice a day. 8. Vitamin D3 1000 units daily. 9. Isosorbide mononitrate 30 mg daily. 10. Pantoprazole 40 mg daily. LABORATORY DATA AND STUDIES PERFORMED DURING THE HOSPITAL STAY: Include: On : Sodium 139, potassium 4.1, chloride 105, carbon dioxide 28, BUN of 16, and creatinine 0.63. Liver function tests were obtained on admission were unremarkable, possible mild elevation of bilirubin of 1.4. The patient's magnesium was 1.9 on the day of discharge. The patient's troponin continued to be 0 to 0.01 throughout her hospital stay. D-dimer was below 200 at admission. A transthoracic echocardiogram obtained on the day of discharge showed mild-to- moderate concentric LVH. There is increased basal septal hypertrophy noted without evidence of an increased gradient across the left ventricular outflow tract. Global left ventricular wall motion and contractility within normal limits. The estimated ejection fraction was greater than 65%. There was mild aortic regurgitation. There was mild mitral regurgitation. The mitral valve repair is functioning normally. There is mild tricuspid regurgitation. No pulmonary hypertension is noted. There were no significant changes when compared with previous study done on the 02/25/16. HOSPITALIZATION COURSE: Ivelisse Reddy is a 76-year-old female with the above- mentioned coronary artery bypass grafting history in 2005 and recent unremarkable cardiac catheterization obtained in June 2016 who presented to the hospital complaining of palpitations. The patient was noted to be in ventricular bigeminy. She was observed in telemetry monitored bed. She continued to have negative troponins. Nevertheless her PVCs continued to be occurring. She also had another run of ventricular bigeminy in the morning when she actually experienced palpitations. Unfortunately, I was unable to titrate up her atenolol since her systolic pressures were in the low 100s. Her electrolytes were unremarkable and her D- dimer was negative. The patient stated that she had been exhausted since she just traveled recently to [place] and back. She came back from [place] on the night when the symptoms started developing. The patient does state that in the past, she would have an occasional episode of palpitations, but they would be short-lasting. I obtained the cardiac catheterization report from July 2016, which showed no significant stenosis. I also obtained the transthoracic echocardiogram, which was unremarkable and consistent with prior report from 2016. At this point, I reassured the patient that most likely her ventricular bigeminy and PVCs are benign. The patient is recommended to follow up with her primary care provider as well as her diesel engine engineer, Dr. Abdullahi. She has a scheduled appointment with Dr. Abdullahi within the next couple of weeks. If the patient continues to have problems with ventricular bigeminy, it is possible that her diesel engine engineer will recommend a longer monitoring. The patient is going to be discharged home and reassured at this point. Medications at discharge are unchanged from admission. Physical examination at the time of discharge is unchanged from admission. CC: Dr. Gordon; Dr. Abdullahi * [id number]/CPS #: [id number] [facility] CENTERLibertad
== END 2016-10-21 13:35 | disposition home or self-care (01) ==
LOC: ED 02:14 → MEDTELE 07:14
PROVIDERS: ADMIT Internal Medicine; ATTEND Internal Medicine
DX: R00.2 Palpitations (principal); R00.8 Other abnormalities of heart beat; I49.3 Ventricular premature depolarization; R07.9 Chest pain, unspecified; I25.10 Atherosclerotic heart disease of native coronary artery without angina pectoris; I51.7 Cardiomegaly; I10 Essential (primary) hypertension; Z95.1 Presence of aortocoronary bypass graft; E78.5 Hyperlipidemia, unspecified; Z85.528 Personal history of other malignant neoplasm of kidney; K27.9 Peptic ulcer, site unspecified, unspecified as acute or chronic, without hemorrhage or perforation; Z86.73 Personal history of transient ischemic attack (TIA), and cerebral infarction without residual deficits; Z79.82 Long term (current) use of aspirin; Z79.899 Other long term (current) drug therapy; Z88.2 Allergy status to sulfonamides
CPT/HCPCS: 36415; 71020; 80048; 80053; 83605; 83735; 84484; 85025; 85379; 93005; 93306; 94640; 94760; 96360; 96361; 96372; 99283; A9270-GY; G0378; J1644

== ENCOUNTER 2018-01-05 12:01 | Emergency (ER) | payer MEDICARE, BC ==
[2018-01-05 12:12] VITALS: BP 148/68
--- NOTE | 2018-01-05 12:18 | UC ---
Ear Complaint HPI - HPI Summary HPI Summary: both ears are clogged with cerumen--has tried ear drops with out relief - History of Current Complaint Chief Complaint: UCEar Stated Complaint: EAR COMPLAINT BI Time Seen by Provider: 01/05/18 12:09 Hx Obtained From: Patient ?: No Onset/Duration: Gradual Onset, Lasting Weeks - 2, Still Present Pain Intensity: 0 Pain Scale Used: 0-10 Numeric Alleviating Factors: Nothing Associated Signs/Symptoms: Positive: Hearing Loss - Allergies/Home Medications Allergies/Adverse Reactions: Allergies Allergy/AdvReac Type Severity Reaction Status Date / Time Adhesive Tape Allergy Rash And Verified 10/20/16 02:27 Itching Sulfa (Sulfonamide Allergy Rash Verified 01/05/18 12:04 Antibiotics) LUBRICANT Allergy See Comment Uncoded 10/20/16 02:27 PMH/Surg Hx/FS Hx/Imm Hx Previously Healthy: No Endocrine History: Dyslipidemia Cardiovascular History: Cardiac Disease, Hypertension Respiratory History: Asthma GI/ History: Gastroesophageal Reflux - Surgical History Surgical History: Yes Surgery Procedure, Year, and Place: MITRAL VALVE REPAIR, appendectomy, CABG, tonsillectomy, LUMPECTOMY, KIDNEY SURGERY, partial hysterectomy,SINUS - Family History Known Family History: Positive: Cardiac Disease - Social History Occupation: Retired Lives: With Family Alcohol Use: Weekly Alcohol Amount: 3 glasses of wine per week Substance Use Type: None Smoking Status (MU): Never Smoked Tobacco - Immunization History Most Recent Influenza Vaccination: 2013 Most Recent Tetanus Shot: up to date Most Recent Pneumonia Vaccination: 2016 Review of Systems Constitutional: Negative Skin: Negative Eyes: Negative ENT: Ear Ache - both feeling clogged and are popping Respiratory: Negative Cardiovascular: Negative Gastrointestinal: Negative Genitourinary: Negative Motor: Negative Neurovascular: Negative Musculoskeletal: Negative Neurological: Negative Psychological: Negative Is Patient Immunocompromised?: No All Other Systems Reviewed And Are Negative: Yes Physical Exam Triage Information Reviewed: Yes Appearance: Well-Appearing, No Pain Distress, Well-Nourished Vital Signs: Initial Vital Signs Temp 98 F 01/05/18 12:06 Pulse 65 01/05/18 12:06 Resp 16 01/05/18 12:06 BP 148/68 01/05/18 12:06 Pulse Ox 100 01/05/18 12:06 Vital Signs Reviewed: Yes Eye Exam: Normal Eyes: Positive: Conjunctiva Clear ENT Exam: Normal ENT: Positive: Normal ENT inspection, Hearing grossly normal. Negative: Nasal congestion, TMs normal - bilateral cerumen impaction, Trismus, Muffled voice, Hoarse voice Dental Exam: Normal Neck exam: Normal Neck: Positive: Supple, Nontender, No Lymphadenopathy Respiratory Exam: Normal Respiratory: Positive: Chest non-tender, No respiratory distress, No accessory muscle use Cardiovascular Exam: Normal Cardiovascular: Positive: Pulses Normal, Brisk Capillary Refill Musculoskeletal Exam: Normal Musculoskeletal: Positive: Strength Intact, ROM Intact, No Edema Neurological Exam: Normal Neurological: Positive: Alert, Muscle Tone Normal Psychological Exam: Normal Skin Exam: Normal Ear Complaint Course/Dx - Course Course Of Treatment: bilateral ear irragation, follow blood pressure with pcp prn - Differential Dx/Diagnosis Provider Diagnoses: hypertension in poor control, resolved bilateral cerumen impaction Discharge - Sign-Out/Discharge Documenting (check all that apply): Patient Departure - Discharge Plan Condition: Stable Disposition: HOME Patient Education Materials: Cerumen Impaction (ED), Hypertension (ED) Referrals: Eveline Gordon MD [Primary Care Provider] - 2 Weeks - Billing Disposition and Condition Condition: STABLE Disposition: Home Attestation Statement User Type: Provider - I was available for consult. This patient was seen by the POPEYE. The patient was not presented to, seen by, or examined by me. -Pooja
== END 2018-01-05 13:05 | disposition home or self-care (01) ==
LOC: UCEAST 12:01
DX: H61.23 Impacted cerumen, bilateral (principal); I10 Essential (primary) hypertension; J45.909 Unspecified asthma, uncomplicated; Z88.2 Allergy status to sulfonamides; Z91.09 Other allergy status, other than to drugs and biological substances; Z88.8 Allergy status to other drugs, medicaments and biological substances
CPT/HCPCS: 99213; G0463

== ENCOUNTER 2018-03-03 15:48 | Inpatient (IN) | payer MEDICARE, BC ==
--- NOTE | 2018-03-03 17:08 | ED ---
Neurological HPI - HPI Summary HPI Summary: Pt is a 77 y/o female who presents to the ED s/p possible TIA. She states at 14: 30 today she was on the phone when suddenly the sentences she was speaking did not make sense. Pt states this episode lasted about 30 seconds. As per , the pt had a blank look on her face during this episode. Pt notes a similar brief episode a few weeks ago. She denies any weakness. Pt now currently c/o a headache. PMHx CVA, TIA, HTN, CABG. - History of Current Complaint Chief Complaint: EDWeakness Stated Complaint: TROUBLE SPEAKING/SPEECH ISSUE Time Seen by Provider: 03/03/18 16:59 Hx Obtained From: Patient, Family/Credit Products Officer - Onset/Duration: Sudden Onset, Started hours ago - 14:30, Resolved Timing: Sudden Onset Current Severity: None Neurological Deficit Location: Generalized Headache Location: Diffuse (Right), Diffuse (Left) Pain Intensity: 0 Pain Scale Used: 0-10 Numeric Character: Impaired Speech - Aphasia Aggravating: Nothing Alleviating: Spontanious Resolution Associated Signs and Symptoms: Positive: Headache, Impaired Speech. Negative: Weakness Similar Episode/Dx as: 2-3 weeks ago similar episode, hx TIA and CVA - Additional Pertinent History Primary Care Physician: SALAS - Allergy/Home Medications Allergies/Adverse Reactions: Allergies Allergy/AdvReac Type Severity Reaction Status Date / Time Adhesive Tape Allergy Rash And Verified 10/20/16 02:27 Itching Sulfa (Sulfonamide Allergy Rash Verified 01/05/18 12:04 Antibiotics) LUBRICANT Allergy See Comment Uncoded 10/20/16 02:27 Home Medications: Home Medications Conjugated Estrogens VAG CM* [Premarin VAG CREAM*] 1 applic VAGINAL SEE INSTRUCTIONS 03/03/18 [History Confirmed 03/03/18] Hydrocortisone 2.5% CREAM(NF) 1 applic TOPICAL TID PRN 03/03/18 [History Confirmed 03/03/18] Isosorbide Mononitrate ER TAB* [Imdur ER TAB*] 15 mg PO DAILY 03/03/18 [History Confirmed 03/03/18] Multivitamin [Multivitamins] 1 cap PO DAILY 03/03/18 [History Confirmed 03/03/18 ] PMH/Surg Hx/FS Hx/Imm Hx Endocrine/Hematology History: Denies: Hx Diabetes Cardiovascular History: Reports: Hx Coronary Artery Disease, Hx Hypercholesterolemia, Hx Hypertension - on meds, Hx Valvular Heart Disease, Other Cardiovascular Problems/Disorders - MO, mitral valve replacement Denies: Hx Congestive Heart Failure, Hx Pacemaker/ICD Respiratory History: Reports: Hx Asthma GI History: Reports: Hx Gastrointestinal Bleed, Other GI Disorders - peptic ulcer disease History: Reports: Other Problems/Disorders - left kidney ca-tumor removed Denies: Hx Renal Disease Musculoskeletal History: Reports: Hx Arthritis Sensory History: Reports: Hx Contacts or Glasses Denies: Hx Hearing Aid Opthamlomology History: Reports: Hx Contacts or Glasses Neurological History: Reports: Hx CVA, Hx Transient Ischemic Attacks (TIA) Psychiatric History: Denies: Hx Panic Disorder - Cancer History Cancer Type, Location and Year: left kidney 2006, tumor removed - Surgical History Surgery Procedure, Year, and Place: MITRAL VALVE REPAIR, appendectomy, CABG, tonsillectomy, LUMPECTOMY, KIDNEY SURGERY, partial hysterectomy,SINUS - Immunization History Date of Influenza Vaccine: fall 2014 Infectious Disease History: No Infectious Disease History: Reports: Hx Shingles - 2006 Denies: Traveled Outside the [place] in Last 30 Days - Family History Known Family History: Positive: Cardiac Disease - Social History Alcohol Use: Rare Alcohol Amount: 2 glasses of wine weekly Hx Substance Use: No Substance Use Type: Reports: None Hx Tobacco Use: No Smoking Status (MU): Never Smoked Tobacco Review of Systems Negative: Fever Neurological: Other - Aphasia Positive: Headache. Negative: Weakness All Other Systems Reviewed And Are Negative: Yes Physical Exam - Summary Physical Exam Summary: Appearance: Well appearing, no pain distress Skin: warm, dry, reflects adequate perfusion Head/face: normal Eyes: EOMI, KARLA ENT: normal Neck: supple, non-tender Respiratory: CTA, breath sounds present Cardiovascular: RRR, pulses symmetrical Abdomen: non-tender, soft Bowel: present Musculoskeletal: normal, strength/ROM intact Neuro: normal, sensory motor intact, A&Ox3 GCS: 15 Triage Information Reviewed: Yes Vital Signs On Initial Exam: Initial Vitals Temp Pulse Resp BP Pulse Ox 97.5 F 64 16 166/62 99 03/03/18 16:07 03/03/18 16:07 03/03/18 16:07 03/03/18 16:07 03/03/18 16:07 Vital Signs Reviewed: Yes Diagnostics - Vital Signs Vital Signs Temp Pulse Resp BP Pulse Ox 03/03/18 16:38 64 18 174/91 99 03/03/18 16:07 97.5 F 64 16 166/62 99 - Laboratory Result Diagrams: 03/03/18 17:14 03/03/18 17:14 Lab Statement: Any lab studies that have been ordered have been reviewed, and results considered in the medical decision making process. - CT Brain CT CT Interpretation: Positive (See Comments) - CT findings are consistent with chronic microvascular disease and a stable lacunar infarction at the right subinsular region. If the patient is exhibiting focal neurologic deficit superior characterization can be made with MRI of the brain. ED physician reviewed radiology report. CT Interpretation Completed By: Radiologist - EKG 17:10 Cardiac Rate: NL - 60 bpm EKG Rhythm: Sinus Rhythm EKG Interpretation: No acute changes NIH Scale - NIH Scale Level of Consciousness: Alert/Keenly Responsive Ask Patient the Month and His/Her Age: Both Correct Ask Pt to Open/Close Eyes and Telemarketing Fundraiser/Release Non-Paretic Hand: Both Correctly Best Gaze (Only Horizontal Eye Movement): Normal Visual Field Testing: No Visual Loss Facial Paresis-Pt to Smile & Close Eyes or Grimace Symmetry: Normal/Symmetrical Motor Function - Right Arm: No Drift-Holds 10 Seconds Motor Function - Left Arm: No Drift-Holds 10 Seconds Motor Function - Right Leg: No Drift-Holds 10 Seconds Motor Function - Left Leg: No Drift-Holds 10 Seconds Limb Ataxia-Must be out of Proportion to Weakness Present: Absent Sensory (Use Pinprick to Test Arms/Legs/Trunk/Face): Normal Best Language (Describe Picture, Name Items): No Aphasia Dysarthria (Read Several Words): Normal Extinction and Inattention: No Abnormality Total Score: 0 Course/Dx - Course Course Of Treatment: Pt is a 77 y/o female who presents to the ED s/p possible TIA. She states at 14:30 today she was on the phone when suddenly the sentences she was speaking did not make sense. Pt states this episode lasted about 30 seconds. As per , the pt had a blank look on her face during this episode. Pt notes a similar brief episode a few weeks ago. She denies any weakness. Pt now currently c/o a headache. PMHx CVA, TIA, HTN, CABG. A physical exam revealed a GCS of 15. A brain CT revealed CT findings are consistent with chronic microvascular disease and a stable lacunar infarction at the right subinsular region. If the patient is exhibiting focal neurologic deficit superior characterization can be made with MRI of the brain. An EKG revealed a rate of 60 bpm. NIH score was 0. Final dx is TIA. Dr. Hubbard accepts pt for admission. Pt is agreeable with this plan. - Differential Dx Differential Diagnoses Neuro: Positive: Cerebrovascular Accident, Intracranial Bleed, Transient Ischemic Attack, Vasovagal Reaction - Diagnoses Provider Diagnoses: TIA (transient ischemic attack) - Physician Notifications Discussed Care Of Patient With: Kaylin Hubbard Time Discussed With Above Provider: 18:00 Instructed by Provider To: Admit As Inpatient - Critical Care Time Critical Care Time: 30-74 min Discharge - Sign-Out/Discharge Documenting (check all that apply): Patient Departure - Admit - Discharge Plan Condition: Stable Disposition: ADMITTED TO [facility] Referrals: Eveline Gordon MD [Primary Care Provider] - - Billing Disposition and Condition Condition: STABLE Disposition: Admitted to [facility] - Attestation Statements Document Initiated by Scribe: Yes Documenting Scribe: Rosa Elena Lujan Provider For Whom Scribe is Documenting (Include Credential): Mauri Radford MD Scribe Attestation: Rosa Elena Romero, scribed for Mauri Radford MD on 03/03/18 at 1820. Scribe Documentation Reviewed: Yes Provider Attestation: The documentation as recorded by the Rosa Elena de la vega accurately reflects the service I personally performed and the decisions made by me, Mauri Radford MD
[2018-03-03 17:26] LABS: ABS Basophils 0 10^3/ul (0-0.2); ABS Eosinophils 0.2 10^3/ul (0-0.6); ABS Lymphocytes 1.5 10^3/ul (1.0-4.8); ABS Monocytes 0.4 10^3/ul (0-0.8); ABS Neutrophils 3.2 10^3/ul (1.5-7.7); ABS Nucleated RBC 0 10^3/ul; Eosinophil % 3.1 % (0-6); Hematocrit 36 % (35-47); Hemoglobin 11.9 g/dl (12.0-16.0); Lymphocyte % 28.2 % (25-47); Mean Corpuscular HGB Conc 33 g/dl (31-36); Mean Corpuscular Hemoglobin 28 pg (27-31); Mean Corpuscular Volume 85 fL (80-97); Mean Platelet Volume 8.4 um3 (7.4-10.4); Nucleated Red Blood Cells % 0; Platelet Count 173 10^3/ul (150-450); Red Blood Count 4.19 10^6/ul (4.00-5.40); Red Cell Distribution Width 15 % (10.5-15); White Blood Count 5.3 10^3/ul (3.5-10.8)
[2018-03-03 17:36] LABS: INR 0.9 (0.77-1.02)
--- NOTE | 2018-03-03 17:41 | RAD ---
INDICATION: Slurred speech COMPARISON: Most recent CT the brain is dated February 23, 2016 TECHNIQUE: Contiguous axial sections of the brain were obtained from the skull base to the vertex without contrast. FINDINGS: The ventricles, cisterns and sulci are within normal limits. There is a mild degree of periventricular and subcortical white matter change most consistent with chronic microvascular disease. There is a stable focal 4 mm hypoattenuating lesion at the right subinsular ribbon unchanged since the previous CT of the brain. Otherwise the medel-white matter differentiation is adequately maintained and there is no sulcal effacement. No significant focal abnormality or mass effect is present. There is no evidence for intracranial hemorrhage. No significant focal osseous abnormality is present. The visualized portion of the paranasal sinuses appear clear. The mastoid air cells are well aerated bilaterally. IMPRESSION: CT findings are consistent with chronic microvascular disease and a stable lacunar infarction at the right subinsular region. If the patient is exhibiting focal neurologic deficit superior characterization can be made with MRI of the brain. Findings discussed over the telephone with Dr. Radford at 1735 hours on March 03, 2018.
[2018-03-03 17:44] LABS: EGFR Non-African American 82.1 (>60)
[2018-03-03 18:49] LABS: Urine Appearance Clear; Urine Color Yellow; Urine Ketones Negative (Negative); Urine Protein Negative (Negative); Urine Urobilinogen Negative (Negative)
[2018-03-03 18:50] LABS: Urine Blood Negative (Negative)
[2018-03-03 19:20] LABS: Urine Red Blood Cell 1+(3-5/hpf) (Absent); Urine White Blood Cell 2+(11-20/hpf) (Absent)
[2018-03-03] MEDS ORDERED: Albuterol HFA INHALER* 8 gm MDI INH PRN (20:04)
[2018-03-03] MEDS: Montelukast Sodium TAB* 10 MG PO SCH (20:41)
[2018-03-03] MEDS: Valsartan TAB* 160 MG PO SCH (20:41)
[2018-03-03] MEDS: Mometasone/Formoter 100/5 MDI INH SCH (21:30)
[2018-03-03] MEDS: Heparin VIAL(*) 5000 UNITS/ML VIAL (FIVE THOUSAND) SUBCUT SCH (21:45)
--- NOTE | 2018-03-03 22:04 | RAD ---
EXAM: MR Head Without Intravenous Contrast CLINICAL HISTORY: 77 years old, female; Signs and symptoms; Speech disturbance; Aphasia; Patient HX: Pt C/O of sudden onset episode of aphasia around 1430 today; Additional info: Possible TIA TECHNIQUE: Magnetic resonance images of the head/brain without intravenous contrast in multiple planes. COMPARISON: BRAIN WO MRI BRAIN W/O 02/24/2016 8:30 PM FINDINGS: Brain: Focal area of altered relaxation located in the medel matter in the left parietal lobe and high convexity region. This is in an area of the postcentral gyrus. No alteration in the signal intensity in the diffusion weighted sequences or in the susceptibility weighted sequence. This may represent a sub-acute infarct with pseudonormalization. Linear defect involving the inferior aspect of the right cerebellar hemisphere consistent with an old cortical infarct. No evidence of hemorrhage. Focal areas of altered relaxation involving the subcortical and periventricular white matter consistent with a microvascular leukoencephalopathy. Brainstem: Susceptibility weighted study shows areas of susceptibility effects in the right side of the brainstem. The susceptibility affects extend beyond the brain parenchyma and I suspect is artifactual. No corresponding abnormality is seen on the other pulse sequences. Ventricles: No evidence of obstructive hydrocephalus. Bones/joints: Unremarkable. Sinuses: Unremarkable as visualized. No acute sinusitis. Mastoid air cells: Unremarkable as visualized. No mastoid effusion. Orbits: Unremarkable as visualized. IMPRESSION: 1. Focal area of altered relaxation located in the left parietal lobe in the high convexity area. This does not show any significant changes on the susceptibility weighted studies. This may represent pseudonormalization. No evidence of hemorrhage is seen. No mass effect is noted. This may represent an area of subacute infarction. 2. Old area of infarction located in the inferior aspect of the right cerebellar hemisphere.
--- NOTE | 2018-03-04 01:37 | HP ---
CC: Dr. Eveline Gordon * HISTORY AND PHYSICAL: DATE OF ADMISSION: 03/03/18 PRIMARY CARE PROVIDER: Dr. Eveline Gordon. ATTENDING PHYSICIAN: Dr. Aidan Levin * (dictated by Zoë Toro NP). CHIEF COMPLAINT: Aphasia. HISTORY OF PRESENT ILLNESS: Ms. Reddy is a 77-year-old female with past medical history significant for coronary artery disease, asthma, hypertension, hyperlipidemia, renal cell carcinoma, status post partial left nephrectomy, peptic ulcer disease, history of a possible TIA, and borderline dementia, who states that she was in her usual state of health when around 2:30 this afternoon while on the phone, she noted that she said some words, that were not the words she was trying to say, then she was unable to say anymore words. She reported that this lasted for approximately a minute. She was across the room away from her during this episode, sitting in a chair with her back to him, he did not see her face. She does not believe that she had any facial drooping at the time of the episode. She denied any associated numbness, tingling, or weakness with this. She notes that she started with a frontal headache in the morning, which is her typical headache and this moved back towards her posterior head near her occipital area around the time of this episode, but again she reports that this is similar to previous headaches. She denies any recent fevers, chills, chest pain, shortness of breath, vomiting, or nausea. She reports yesterday she had some diarrhea, but her also had diarrhea yesterday, so they felt this was from something they eat. She denies any visual changes. No weakness. No urinary symptoms such as urgency, burning , frequency. She reports having some symptoms few weeks ago with similar issues with some speech. At that time that quickly resolved, so she did not seek medical care. She states that in the past, she believes she was told that she had had a stroke with possibly 2 mini strokes in the past. At those times, she had some visual disturbances and issues with her speech. The patient reports having cramp in her left lower extremity, but denies any lower extremity edema a few days ago or continued pain in that leg. Due to her difficulty with speech , she presented to the emergency room for further evaluation. While in the emergency room, her workup was essentially negative with stable vital signs with the exception of some hypertension, normal labs. A CT brain without acute findings. She had an EKG without acute findings and the hospitalists were asked to evaluate the patient for admission. PAST MEDICAL HISTORY: 1. Coronary artery disease. 2. Asthma. 3. Hypertension. 4. Hyperlipidemia. 5. Renal cell carcinoma. 6. Peptic ulcer disease. 7. TIA x2 and possible CVA. 8. Borderline diabetes, while on prednisone. PAST SURGICAL HISTORY: 1. Status post hysterectomy. 2. Status post coronary artery bypass graft in 2005 with a mitral valve repair. 3. Status post left partial nephrectomy. 4. Status post breast lumpectomy that was benign. 5. Status post tonsillectomy. HOME MEDICATIONS: Include: 1. Premarin vaginal cream apply vaginally bi-weekly. 2. Valsartan 160 mg oral twice daily. 3. Protonix 40 mg oral daily. 4. Nitroglycerin 0.4 mg sublingual every 5 minutes as needed for chest pain. 5. Multivitamin 1 tablet oral daily. 6. Singulair 10 mg oral daily at bedtime. 7. Nasonex 2 sprays to both nares daily. 8. Imdur 15 mg oral daily. 9. Vitamin D3 1000 units oral daily. 10. Hydrocortisone cream 2.5% apply topical 3 times daily as needed for hemorrhoids. 11. Advair Diskus 100-50 one puff inhalation twice daily. 12. Aggrenox 25-200 one capsule oral twice daily. 13. Atorvastatin 80 mg oral daily. 14. Atenolol 50 mg oral daily. 15. Albuterol HFA inhaler 2 puffs inhalation every 4 hours as needed for shortness of breath or wheeze. ALLERGIES: K-Y LUBRICANT, SULFA, and ADHESIVE TAPE. FAMILY HISTORY: The patient's mother and father with a history of heart disease. Brother with an CT at age 38. Denies any family history of diabetes or cancer. SOCIAL HISTORY: She denies tobacco, alcohol, or recreational drug use. She is a retired teacher. She lives with her . Her , Sridhar Reddy, . and son, Sridhar Reddy, Jr. will be her surrogate decision maker in the event she is unable to make decisions for herself. REVIEW OF SYSTEMS: I performed an 11-point review of systems. All the pertinent positives and negatives are mentioned in the history of present illness. The remaining review of systems are negative. PHYSICAL EXAMINATION GENERAL APPEARANCE: The patient is alert, pleasant, appears to be in no acute distress. VITAL SIGNS: Temperature 97.3, heart rate 62, respiratory rate 22, O2 sat 96% on room air, blood pressure 169/78. HEENT: Normocephalic, atraumatic. Pupils are equal and reactive to light. Extraocular movements are intact. RESPIRATORY: There is no accessory muscle use. Lungs are clear to auscultation bilaterally. CARDIOVASCULAR: Regular rate and rhythm. S1, S2 present. There are no murmurs , rubs, or gallops heard. ABDOMEN: Soft, nontender, nondistended. Bowel sounds present x4. EXTREMITIES: There is no lower extremity edema. DP and PT pulses are 2+ and symmetric. MUSCULOSKELETAL: There is no clubbing or cyanosis noted. The patient exhibits good strength in all extremities. NEUROLOGIC: The patient is alert and oriented x4. Cranial nerves II through XII are grossly intact. Her handgrips are equal. She is able to dorsi and plantarflex bilaterally. She is able to lift both lower extremities off the bed without difficulty. Her smile is symmetric. Her tongue is midline. PSYCHOLOGICAL: The patient is calm and cooperative. SKIN: There are no rashes or abnormality seen. DIAGNOSTIC STUDIES/LABORATORY DATA: Sodium 141, potassium 4.2, chloride 106, CO2 29, BUN 18, creatinine 0.69, glucose 128. White blood cell count 5.3, hemoglobin 11.9, hematocrit 36, platelet count 173. Total bilirubin 1.30. EKG shows a sinus rhythm, rate of 60, no acute signs of ischemia. This EKG is similar to previous EKG from 10/20/16. Brain CT from today. Radiologist's impression: CT findings are consistent with chronic microvascular disease and stable lenticular infarction at the right subinsular region. IMPRESSION: Ms. Reddy is a 77-year-old female with past medical history significant for coronary artery disease, asthma, hypertension, hyperlipidemia, renal cell carcinoma, status post partial nephrectomy, peptic ulcer disease, transient ischemic attack, cerebrovascular accident, and borderline diabetes, who presents to the emergency room with complaints of aphasia. She will be admitted as an observation for transient ischemic attack. ASSESSMENT/PLAN: 1. Aphasia. I suspect this could likely represent a transient ischemic attack. The patient is currently on Aggrenox. We are going to discontinue her Aggrenox and switch her to 81 mg of aspirin and Plavix. Neuro checks q.4. We will monitor on telemetry. She had an echocardiogram in February 2016 with a negative bubble study and we will hold off on a further bubble study at this time. We will check an MRI of her brain. She also 2 years ago had a CTA of her neck. I am going to hold off on repeating that. There was no significant stenosis at that time. Check fasting lipids in the morning. Neurology will consult on the patient in the morning. 2. Hypertension. The patient has been hypertensive in the emergency room. I am going to continue her on her home valsartan, isosorbide, and atenolol. 3. Hyperlipidemia. She will be continued on atorvastatin. I will check fasting lipids in the morning. 4. Coronary artery disease. We will continue her on her atenolol. I am going to switch her Aggrenox to aspirin and Plavix and she will be continued on a statin. She denies any chest pain at this time. 5. Renal cell carcinoma. The patient should continue to follow with her PCP. 6. History of transient ischemic attack and cerebrovascular accident. Again, the patient is presenting with symptoms of a possible transient ischemic attack. We are going to change her Aggrenox to aspirin and Plavix. Continue her on the statin. It appears that she previously has had a lacunar infarct that is stable on CT imaging today. 7. Elevated bilirubin. This appeared to be a chronic condition for the patient. She is at her baseline elevated bilirubin. 8. Peptic ulcer disease. We will continue the patient on her pantoprazole. 9. Fluids, electrolytes, and nutrition: She will be on a heart-healthy diet. 10. Code status. Full code. 11. DVT prophylaxis. The patient is high risk. She will have subcu heparin. DISPOSITION: Observation. TIME SPENT: Time for this admission was approximately 60 minutes, greater than half of that was spent with the patient and her discussing medications, past medical history, the events leading up to her arrival today, performing a physical examination. The case has been reviewed with the attending, Dr. Levin, who agrees with the plan of care. Reviewed by GEOFF SANTIAGO 03/13/18 1754 [id number]/[facility] #: [id number] [facility] CENTERLibertad
[2018-03-04] MEDS: Heparin VIAL(*) 5000 UNITS/ML VIAL (FIVE THOUSAND) SUBCUT SCH ×3 (05:23→20:57)
[2018-03-04] MEDS: Aspirin 81 mg CHEW TAB* 81 MG TAB.CHEW PO SCH (07:49)
[2018-03-04] MEDS: CMCS Pantoprazole TAB (NF) 40 MG TAB PO SCH (07:49)
[2018-03-04] MEDS: Clopidogrel TAB* 75 MG PO SCH (07:49)
[2018-03-04] MEDS: Isosorbide Mononitrate ER TAB* 30 MG PO SCH (07:50)
[2018-03-04] MEDS: Valsartan TAB* 160 MG PO SCH ×2 (07:50→19:47)
[2018-03-04] MEDS: Mometasone/Formoter 100/5 MDI INH SCH ×2 (08:00→19:45)
[2018-03-04] MEDS ORDERED: Atenolol TAB* 50 MG PO SCH ×2 (09:00→15:14)
[2018-03-04] MEDS ORDERED: NS 0.9% 1000 ML* 1,000 ML IV ONE (10:27)
--- NOTE | 2018-03-04 15:01 | PN ---
Subjective Date of Service: 03/04/18 Interval History: HOSPITALIST PROGRESS NOTE Patient seen and examined at bedside. Care reviewed and d/w Carmine Cotter RN. CAT earlier today due to near syncopal episode. Patient went to the bathroom, had a BM, and when she returned to her chair, she felt lightheaded, became diaphoretic and CAT was called. On my arrival, patient was sitting on a chair, pale, diaphoretic. She was bradycardic with HR 40s and we were not able to measure her BP. Moved to bed and BP was 100/40. FS 135. She had progressive improvement of her symptoms, received 1 liter bolus and BP increased to 130/80. She states she had similar episodes in the past when going to the bathroom and when her cut his arm. She's very clear the symptoms today are different from what brought her to ED yesterday. Family History: Unchanged from Admission Social History: Unchanged from Admission Past Medical History: Unchanged from Admission Objective Active Medications: Albuterol (Ventolin Hfa Inhaler*) 2 puff INH Q4H PRN PRN Reason: SOB/WHEEZING Aspirin (Aspirin 81 Mg Chew Tab*) 81 mg PO DAILY [facility] Last Admin: 03/04/18 07:49 Dose: 81 mg Atenolol (Tenormin Tab*) 50 mg PO DAILY [facility] Last Admin: 03/04/18 07:48 Dose: 50 mg Atorvastatin Calcium (Lipitor*) 80 mg PO 1700 JASMYNE Clopidogrel Bisulfate (Plavix Tab*) 75 mg PO DAILY [facility] Last Admin: 03/04/18 07:49 Dose: 75 mg Heparin Sodium (Porcine) (Heparin Vial(*)) 5,000 units SUBCUT Q8HR [facility] Last Admin: 03/04/18 05:23 Dose: 5,000 units Isosorbide Mononitrate (Imdur Er Tab*) 15 mg PO DAILY [facility] Last Admin: 03/04/18 07:50 Dose: 15 mg Mometasone Furoate/Formoterol Fumar (Dulera 100/5 Mdi*) 2 puff INH BID [facility] Last Admin: 03/04/18 08:00 Dose: 2 puff Montelukast Sodium (Singulair Tab*) 10 mg PO BEDTIME [facility] Last Admin: 03/03/18 20:41 Dose: 10 mg Pantoprazole Sodium (Protonix Tab (Nf)) 40 mg PO DAILY [facility] Last Admin: 03/04/18 07:49 Dose: 40 mg Valsartan (Diovan Tab*) 160 mg PO BID [facility] Last Admin: 03/04/18 07:50 Dose: 160 mg Vital Signs - 8 hr 03/04/18 03/04/18 03/04/18 07:37 08:02 11:07 Temperature 98.3 F 97.8 F Pulse Rate 63 65 64 Respiratory 20 16 18 Rate Blood Pressure 136/64 (mmHg) O2 Sat by Pulse 97 98 92 Oximetry 03/04/18 03/04/18 11:09 14:06 Temperature Pulse Rate Respiratory Rate Blood Pressure 130/54 124/60 (mmHg) O2 Sat by Pulse Oximetry Oxygen Devices in Use Now: None Appearance: Pleasant elderly lady lying in bed in NAD. Eyes: No Scleral Icterus Ears/Nose/Mouth/Throat: Mucous Membranes Moist Neck: Trachea Midline Respiratory: Symmetrical Chest Expansion and Respiratory Effort, Clear to Auscultation Cardiovascular: RRR - Normal S1 and S2 Abdominal: NL Sounds; No Tenderness; No Distention Extremities: No Edema Neurological: Alert and Oriented x 3, NL Muscle Strength and Tone Result Diagrams: 03/03/18 17:14 03/03/18 17:14 Assess/Plan/Problems-Billing Assessment: Mrs Reddy is a 77yo F with PMH of CAD s/p CABG, asthma, HTN, HLD, renal cell carcinoma s/p partial left nephrectomy, PUD, TIA, hyperglycemia while on steroids, who presented to ED with c/o aphasia, found to have possible TIA. - Patient Problems (1) Vasovagal near syncope Comment: - Suspect her episode today was secondary to a vasovagal episode. - Will continue to monitor. - Continue Atenolol. (2) TIA (transient ischemic attack) Comment: - Was on Aggrenox and now on Aspirin and Plavix as per Neuro recommendation. - MRI negative for acute stroke. - For carotid doppler and echocardiogram. - Continue neurochecks. (3) HTN (hypertension) Comment: - Controlled. - Continue Atenolol and Valsartan with holding parameters. (4) HLD (hyperlipidemia) Comment: - LDL is 68 - continue Atorvastatin. (5) CAD (coronary artery disease) Comment: - Continue aspirin, plavix, atorvastatin, Imdur, and atenolol (6) PUD (peptic ulcer disease) Comment: - Continue Pantoprazole. (7) DVT prophylaxis Comment: - SQ heparin. (8) DNR (do not resuscitate) Status and Disposition: Change to inpatient.
--- NOTE | 2018-03-04 15:23 | RAD ---
INDICATION: TIA. COMPARISON: Correlation is made with a prior CT angiogram of the head and neck from February 24, 2016. Correlation is also made with a prior carotid duplex ultrasound from November 03, 2014. TECHNIQUE: Multiple grayscale, color and Doppler tracings of the common, internal and external carotid and vertebral arteries were obtained. Stenosis estimations reflect velocity criteria that it been correlated to angiographic stenosis calculations based on the distal internal carotid diameter. RIGHT CAROTID: There is mild to moderate hyperechoic plaque within the right carotid bulb and proximal internal carotid artery. The peak systolic velocity in the proximal right internal carotid artery is 83 cm/s and the maximum end-diastolic velocity is 24 cm/s. The peak systolic velocity in the distal right common carotid artery is 66 cm/s and the maximum end-diastolic velocity is 13 cm/s. The internal to common carotid artery ratio is 1.3. This would be consistent with a less than 50% stenosis. LEFT CAROTID: There is mild hyperechoic plaque within the left carotid bulb and proximal internal carotid artery. The peak systolic velocity in the proximal left internal carotid artery is 72 cm/s and the maximum end-diastolic velocity is 19 cm/s. The peak systolic velocity in the distal left common carotid artery is 73 cm/s and the maximum end-diastolic velocity is 16 cm/s. The internal to common carotid artery ratio is 1.0. This would be consistent with a less than 50% stenosis. VERTEBRALS: There is antegrade flow in both vertebral arteries. IMPRESSION: THERE IS MILD TO MODERATE PLAQUE PRESENT WITHIN THE CAROTID BULBS AND PROXIMAL INTERNAL CAROTID ARTERIES. NO HEMODYNAMICALLY SIGNIFICANT STENOSIS IS SEEN. THERE IS NO SIGNIFICANT CHANGE FROM THE PRIOR STUDY. CPT II Codes: 3100F
[2018-03-04 16:29] LABS: EGFR Non-African American 89.5 (>60)
[2018-03-04] MEDS: Atorvastatin* 80 MG TAB PO SCH (16:50)
[2018-03-04] MEDS: Polyethylene Glycol 3350* 17 GM PACKET PO SCH ×2 (16:50→19:48)
--- NOTE | 2018-03-04 18:44 | ECHO ---
Patient: FRANCISCO DUQUE [facility] Rec#: [id number] : 1940 Date: 03/04/2018 Age: 77y Height: 147 cm / 57.9 in Weight: 52 kg / 114.6 lbs Sex: F BSA: 1.44 Room#: [facility] Admit Date#: 03/03/2018 Type: Inpatient Referring: Kaylin Fabina MD Reading: Lizeth Reardon MD Director Hair: Roseanne Canales,TAMIKOCS,RDMS CC: Eveline Gordon MD Transthoracic Echocardiogram Indication: TIA BP: 130/54 HR: 64 Rhythm: NSR Findings History: CAD, CABG, MV repair, HTN, HLD, TIA Technical Comments: The study quality is fair. Left Ventricle: The left ventricular chamber size is normal. Mild concentric left ventricular hypertrophy is observed. Global left ventricular wall motion and contractility are within normal limits. The left ventricle appears hyperdynamic. The estimated ejection fraction is greater than 65%. Abnormal left ventricular diastolic filling is observed, consistent with impaired relaxation. Left Atrium: The left atrium is mild to moderately dilated. Right Ventricle: The right ventricular chamber size and systolic function are within normal limits. Right Atrium: The right atrium is slightly dilated. Aortic Valve: The aortic valve is trileaflet. The aortic valve leaflets are mildly thickened. Systolic excursion of the aortic valve is normal. There is a trace of aortic regurgitation. There is no evidence of aortic stenosis. Mitral Valve: There is mitral annular calcification. Mitral valve leaflet mobility is mildly restricted. There is no evidence of mitral regurgitation. There is mild mitral stenosis. Color Doppler shows resistance to inflow, prolonged deceleration time. The mean gradient across the mitral valve is 3 mmHg. The mitral valve area, by pressure half time, is calculated at 1.6 cm2. Mitral valve repair functioning normally. Tricuspid Valve: The tricuspid valve leaflets are normal. There is trace tricuspid regurgitation. Unable to estimate the right ventricular systolic pressure. Pulmonic Valve: The pulmonic valve appears normal. There is a trace pulmonic regurgitation. Pericardium: There is no significant pericardial effusion. Aorta: There is no dilatation of the ascending aorta. There is no dilatation of the aortic arch. The aortic root is normal in size. Pulmonary Artery: The main pulmonary artery appears normal. Venous: The inferior vena cava appears normal in size. There is a greater than 50% respiratory change in the inferior vena cava dimension. Conclusions Mild concentric left ventricular hypertrophy is observed. Global left ventricular wall motion and contractility are within normal limits. The left ventricle appears hyperdynamic. The estimated ejection fraction is greater than 65%. Abnormal left ventricular diastolic filling is observed, consistent with impaired relaxation. The right ventricular chamber size and systolic function are within normal limits. The left atrium is mild to moderately dilated. The aortic valve leaflets are mildly thickened with good function, trace aortic insufficiency. The mitral valve is s/p repair. Mild annular echo brightness, possible ring. Mild prolongation in P 1/2 and color Doppler shows resistance to inflow. Anterior leaflet shows good excursion, decreased from normal [place] valve. The mean gradient across the mitral valve is 3 mmHg. The mitral valve area, by pressure half time, is calculated at 1.6 cm2. There is trace tricuspid regurgitation. Compared with prior echo of 10/10/16, EF is stable, mean MV gradient previously 2.5 mmHg, MVA by P 1/2 previously 2.6 cm2. Measurements Name Value Normal Range RVIDd (AP) 2D 2.8 cm (0.9 - 2.6) RVDdMajor (2D) 2.6 cm (2.2 - 4.4) RAd ISD 4CH 5.1 cm (3.4 - 4.9) RA (A4C)W 4.1 cm (2.9 - 4.6) IVSd (2D) 1.2 cm (0.6 - 1) LVPWd (2D) 1 cm (0.6 - 1) LVIDd (2D) 3.7 cm (3.6 - 5.4) LVIDs (2D) 1.7 cm - LV FS (2D) 54 % (25 - 45) Aortic Annulus 2.2 cm (1.4 - 2.6) Ao root diameter (2D) 3.1 cm (2.1 - 3.5) Aortic arch 2.1 cm (1.8 - 3.4) LA dimension (AP) 2D 3.3 cm (2.3 - 3.8) LAd ISD 4CH 6.1 cm (2.9 - 5.3) LA ISD 4CH W 4.3 cm (2.5 - 4.5) Name Value Normal Range LA ESV BP (A/L) index 46 ml/m2 - Name Value Normal Range MV E-wave Vmax 1.1 m/sec - MV deceleration time 319 msec - MV A-wave Vmax 1.3 m/sec - MV E:A ratio 0.8 ratio - LV septal e' Vmax 0.05 m/sec - LV lateral e' Vmax 0.05 m/sec - LV E:e' septal ratio 22 ratio - LV E:e' lateral ratio 22 ratio - Name Value Normal Range AV Vmax 1.4 m/sec - AV VTI 36 cm - AV peak gradient 8 mmHg - AV mean gradient 5 mmHg - LVOT Vmax 0.9 m/sec - LVOT VTI 20 cm - LVOT peak gradient 3.2 mmHg - LVOT mean gradient 2 mmHg - MIGUEL Vmax 0.6 m/sec - Name Value Normal Range MV Vmax 1.3 m/sec - MV VTI 44 cm - MV peak gradient 7 mmHg - MV mean gradient 3 mmHg - MV PHT 135 msec - MVA (PHT) 1.6 cm2 - MVA (continuity VTI) 1.4 cm2 - Name Value Normal Range RAP 8 mmHg - IVC diameter 1.4 cm - Name Value Normal Range PV Vmax 0.6 m/sec - PV peak gradient 1.4 mmHg -
[2018-03-04] MEDS: Montelukast Sodium TAB* 10 MG PO SCH (19:47)
--- NOTE | 2018-03-04 21:29 | CONS ---
NEUROLOGY CONSULTATION: DATE OF CONSULT: 03/04/18 LOCATION: She is in room 447. REFERRING PROVIDER: Dr. Chowdary. PRIMARY CARE PROVIDER: Dr. Gordon. CHIEF COMPLAINT: Episode of word-finding difficulty. HISTORY OF PRESENT ILLNESS: Ivelisse Reddy is a 77-year-old right-handed woman, who was at home with her yesterday afternoon when she picked up the phone to answer it. It was a sales pitch. She tried to speak to the individual , but could not get words out. Her said that she was speaking gibberish and that he could not make out what she was trying to say. She says it lasted for about a minute and then resolved. He thinks it might have lasted as long as 2 minutes. There were no other symptoms. Specifically, she did not feel lightheaded, there was no change in vision, numbness, weakness, or dizziness. She was hospitalized in 2014 for an episode of difficulty coming up with words for just the length of 1 sentence. She was also hospitalized in 2016 for an episode of left-sided numbness. She has been on Aggrenox for an indeterminate length of time. In the past, she has been on Plavix and aspirin. She had an episode this morning when she came back from the bathroom after having a bowel movement. She felt very hot and sweaty and became very pale. Her said she did not respond for a minute or 2. A catcall was called and she was found to be bradycardic in the 40s. By the time they got her in bed and checked her blood pressure, it was about 106/70 or thereabouts. She reports similar episodes of feeling like she did before today when straining at the toilet in the last week when she was bandaging her 's cut arm. PAST MEDICAL HISTORY: Notable for coronary artery disease with bypass grafting , she said she had a valvular procedure done a couple of years back. She has a history of hypertension, asthma, dyslipidemia, renal cell carcinoma, peptic ulcers, partial nephrectomy, breast lumpectomy, hysterectomy. MEDICATIONS: At home consist of: 1. Valsartan 160 mg p.o. b.i.d. 2. Protonix 40 mg p.o. q. day. 3. Singulair 10 mg p.o. q. day. 4. Imdur 15 mg p.o. q. day. 5. Vitamin D3 1000 units p.o. q. day. 6. Advair 1 puff b.i.d. 7. Aggrenox 1 b.i.d. 8. Atorvastatin 80 mg p.o. q. day. 9. Atenolol 50 mg p.o. q. day. ALLERGIES: She is allergic to SULFA DRUGS. SOCIAL HISTORY: She is a nonsmoker. She does not drink alcohol. She lives at home with her . REVIEW OF SYSTEMS: Negative for recent fevers or weight loss. She has hemorrhoids and has problem with constipations and painful bowel movements. She had a history of borderline diabetes when she was on steroids. She has problems with joint pain. She notes that she has been becoming more forgetful. She gets headaches at least weekly typically in the right side of her head or occipitally. She does not get photophobia or nausea with them. There is no history of epilepsy or head trauma. PHYSICAL EXAM: She is well nourished and well hydrated. Temperature 97.8, blood pressure most recently 130/54, heart rates in the 60s and regular. Respiratory rate is 18 and oxygen saturation is 92% on room air. Head is atraumatic. Heart is in a regular rate and rhythm and I do not hear any murmurs. Carotid pulses are present and there are no cervical bruits. Oral mucosa is moist and atraumatic. Lungs are clear anterolaterally. Neurological Exam: Pupils react equally from 4 to 2.5 mm. Funduscopic exam is unremarkable bilaterally. Eye movements and visual garibay are normal. Facial musculature is intact and symmetric. Facial sensation to light touch is symmetric. Tongue protrudes in the midline and palate rises symmetrically and there is no dysarthria. She is a little hard of hearing. Neck strength is intact. Motor exam reveals normal muscle tone and strength proximally and distally in the upper and lower extremities. There is no drift of any limb. Yamenh-ro-elje maneuver is normal. There is no action or rest tremor. Finger taps are normal in the hands. Reflexes are symmetric in the upper and lower extremities, trace at the ankles. Plantar responses are flexor bilaterally. She is alert and oriented and a pretty good historian. She does appear to have some memory deficits that her fills in the gaps. Language is fluent. 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 Brain MRI scan is reviewed. There is an old right cerebellar infarct, an old left posterior parietal small vessel infarct, and some other chronic ischemic changes all suggestive of small vessel disease. The official interpretation by the on-call radiologist was that there is a focal area of altered relaxation in the left parietal lobe. It is interpreted as showing possible pseudonormalization. I reviewed the images and I do not see any evidence of pseudonormalization and there are no abnormalities on diffusion or ADC mapping to suggest acute or subacute infarction. I spoke with Dr. Espinosa, our neuroradiologist over the phone and he agrees that there is no pseudonormalization or evidence of recent infarcts. Other laboratory data is notable for a normal CBC other than borderline low hemoglobin at 11.9, normal INR and PTT, chemistry profile with a glucose of 128 yesterday, otherwise a normal chemistry profile. Cholesterol this morning is 140, LDL 68. Urinalysis is notable for 2+ leukocyte esterase and 2+ white blood cells. 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 It is unchanged from EKG prior to that. Transthoracic echocardiogram from 10/20/16 reveals concentric left ventricular hypertrophy. There are no significant valvular abnormalities described. There is a CT angiogram of the head and neck from 02/24/16, which reveals non- stenosing atherosclerosis in the right carotid bifurcation. IMPRESSION AND PLAN: Impression is that of a possible mild transient ischemic attack. It was very brief, but does sound as though she was having a significant language problem. She does have small vessel disease on her imaging. She is in sinus rhythm and her blood pressure currently is fine. She also had an episode of bradycardia earlier today. I would recommend a carotid ultrasound to make sure she has not developed carotid stenosis since 2016. I would recommend a transthoracic echocardiogram to make sure she has not developed any new valvular abnormalities or other possible cardioembolic sources. I had spoken with Zoë Espinal NP , last evening and recommended switching to Plavix and aspirin dual antiplatelet therapy. For now, I would recommend continuing that for 30 days and then switching to antiplatelet monotherapy in consultation with Dr. Gordon. I have discussed my impression with Dr. Chowdary and the plan is to keep her on telemetry and do the further studies, particularly with her episode of bradycardia earlier today. [id number]/[facility] #: [id number] G[place]
[2018-03-05] MEDS: Heparin VIAL(*) 5000 UNITS/ML VIAL (FIVE THOUSAND) SUBCUT SCH ×3 (04:56→21:16)
[2018-03-05] MEDS: Mometasone/Formoter 100/5 MDI INH SCH ×2 (07:17→20:07)
[2018-03-05] MEDS: Polyethylene Glycol 3350* 17 GM PACKET PO SCH ×2 (08:10→21:15)
[2018-03-05] MEDS: Isosorbide Mononitrate ER TAB* 30 MG PO SCH (08:11)
[2018-03-05] MEDS: Valsartan TAB* 160 MG PO SCH ×2 (08:12→21:15)
[2018-03-05] MEDS: Aspirin 81 mg CHEW TAB* 81 MG TAB.CHEW PO SCH (08:13)
[2018-03-05] MEDS: Clopidogrel TAB* 75 MG PO SCH (08:13)
[2018-03-05] MEDS: CMCS Pantoprazole TAB (NF) 40 MG TAB PO SCH (08:13)
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
[2018-03-05] MEDS ORDERED: NS 0.9% 1000 ML* 1,000 ML IV ONE (13:55)
[2018-03-05] MEDS: Atorvastatin* 80 MG TAB PO SCH (16:40)
--- NOTE | 2018-03-05 16:43 | PN ---
Subjective Date of Service: 03/05/18 Interval History: HOSPITALIST PROGRESS NOTE Patient seen and examined at bedside. She felt better today, but became symptomatic after ambulating, with same flushing sensation, but not as severe as yesterday. Family History: Unchanged from Admission Social History: Unchanged from Admission Past Medical History: Unchanged from Admission Objective Active Medications: Albuterol (Ventolin Hfa Inhaler*) 2 puff INH Q4H PRN PRN Reason: SOB/WHEEZING Aspirin (Aspirin 81 Mg Chew Tab*) 81 mg PO DAILY [facility] Last Admin: 03/05/18 08:13 Dose: 81 mg Atenolol (Tenormin Tab*) 12.5 mg PO DAILY [facility] Atorvastatin Calcium (Lipitor*) 80 mg PO 1700 [facility] Last Admin: 03/04/18 16:50 Dose: 80 mg Clopidogrel Bisulfate (Plavix Tab*) 75 mg PO DAILY [facility] Last Admin: 03/05/18 08:13 Dose: 75 mg Heparin Sodium (Porcine) (Heparin Vial(*)) 5,000 units SUBCUT Q8HR [facility] Last Admin: 03/05/18 13:10 Dose: 5,000 units Isosorbide Mononitrate (Imdur Er Tab*) 15 mg PO DAILY [facility] Last Admin: 03/05/18 08:11 Dose: 15 mg Mometasone Furoate/Formoterol Fumar (Dulera 100/5 Mdi*) 2 puff INH BID [facility] Last Admin: 03/05/18 07:17 Dose: 2 puff Montelukast Sodium (Singulair Tab*) 10 mg PO BEDTIME [facility] Last Admin: 03/04/18 19:47 Dose: 10 mg Pantoprazole Sodium (Protonix Tab (Nf)) 40 mg PO DAILY [facility] Last Admin: 03/05/18 08:13 Dose: 40 mg Polyethylene Glycol/Electrolytes (Miralax*) 17 gm PO 0800,2100 [facility] Last Admin: 03/05/18 08:10 Dose: 17 gm Valsartan (Diovan Tab*) 160 mg PO BID [facility] Last Admin: 03/05/18 08:12 Dose: 160 mg Vital Signs - 8 hr 03/05/18 03/05/18 03/05/18 11:01 12:42 13:50 Temperature 97.9 F 98.0 F 98.3 F Pulse Rate 61 60 64 Respiratory 20 16 16 Rate Blood Pressure 125/51 138/53 130/59 (mmHg) O2 Sat by Pulse 96 97 98 Oximetry 03/05/18 03/05/18 14:05 15:13 Temperature 97.4 F Pulse Rate 64 61 Respiratory 17 Rate Blood Pressure 141/65 173/67 (mmHg) O2 Sat by Pulse 98 Oximetry Oxygen Devices in Use Now: None Appearance: Pleasant elderly lady sitting up in a chair in NAD. Eyes: No Scleral Icterus Ears/Nose/Mouth/Throat: Mucous Membranes Moist Neck: Trachea Midline Respiratory: Symmetrical Chest Expansion and Respiratory Effort, Clear to Auscultation Cardiovascular: RRR - Normal S1 and S2 Abdominal: NL Sounds; No Tenderness; No Distention Neurological: Alert and Oriented x 3, NL Muscle Strength and Tone Result Diagrams: 03/03/18 17:14 03/04/18 19:31 Assess/Plan/Problems-Billing Assessment: Mrs Reddy is a 77yo F with PMH of CAD s/p CABG, asthma, HTN, HLD, renal cell carcinoma s/p partial left nephrectomy, PUD, TIA, hyperglycemia while on steroids, who presented to ED with c/o aphasia, found to have possible TIA. - Patient Problems (1) Vasovagal near syncope Comment: - Suspect her episode 03/04/18 was secondary to a vasovagal episode. - Was mildly symptomatic again today. - Cardio input appreciated - will decrease Atenolol to 12.5mg/day and give further IV hydration. (2) TIA (transient ischemic attack) Comment: - Was on Aggrenox and now on Aspirin and Plavix as per Neuro recommendation. - MRI negative for acute stroke. - Carotid doppler showed no significant stenosis and echocardiogram showed EF>65 %, hyperdynamic. - Continue neurochecks. (3) HTN (hypertension) Comment: - Controlled. - Continue Atenolol (lower dose) and Valsartan with holding parameters. (4) HLD (hyperlipidemia) Comment: - LDL is 68 - continue Atorvastatin. (5) CAD (coronary artery disease) Comment: - Continue aspirin, plavix, atorvastatin, Imdur, and atenolol (6) PUD (peptic ulcer disease) Comment: - Continue Pantoprazole. (7) DVT prophylaxis Comment: - SQ heparin. (8) DNR (do not resuscitate) Status and Disposition: Change to inpatient.
--- NOTE | 2018-03-05 20:25 | CONS ---
NEUROLOGY FOLLOWUP REPORT: DATE OF FOLLOWUP: 03/05/18 HOSPITALIST: Dr. Chowdary. LOCATION: She is an inpatient, she is in room 447. CHIEF COMPLAINT: Episode of word-finding difficulty. INTERVAL HISTORY: Since yesterday, Ms. Reddy feels well. She has not had any more episodes of word-finding difficulty, feeling faint, or getting hot and sweaty. MEDICATIONS: Medications are reviewed and she remains on: 1. Plavix 75 mg p.o. q. day. 2. Aspirin 81 mg p.o. q. day. 3. Atorvastatin 80 mg p.o. q. day. 4. Heparin 5000 units subcutaneous q.8 hours. 5. Isosorbide 15 mg p.o. q. day. 6. Dulera 2 puffs b.i.d. 7. Singulair 10 mg p.o. q. day. 8. Protonix 40 mg p.o. q. day. 9. Valsartan 160 mg p.o. b.i.d. PHYSICAL EXAMINATION: She is afebrile, last temperature 97.9. Blood pressure 149/71, heart rate in the 60s and regular, respiratory rate 21. Oxygen saturation is 93% on room air. She is alert and fully oriented. Memory is intact and language is fluent. Facial musculature is symmetric. Speech is clear without dysarthria. DIAGNOSTIC STUDIES: Include a carotid ultrasound, which does not reveal any carotid stenosis. Echocardiogram does not reveal any significant valvular disease. It does reveal some left ventricular hypertrophy but normal ejection fraction. IMPRESSION AND PLAN: Possible dominant hemisphere transient ischemic attack. There is no evidence of cardio-embolic source or significant cardiac disease. Antiplatelet therapy is therefore recommended. She had an episode of bradycardia as well, which may require further evaluation such as long-term monitoring. In regards to her cerebro-vascular symptoms, I would recommend dual -antiplatelet therapy with Plavix 75 mg and aspirin 81 mg for 30 days and then switch to Plavix monotherapy as she is an "aspirin failure." I will see her in followup in my office in 2 to 4 weeks. [id number]/[facility] #: [id number] MTDD
[2018-03-05] MEDS: Montelukast Sodium TAB* 10 MG PO SCH (21:15)
[2018-03-06] MEDS ORDERED: hydrALAZINE IV* 20 MG/ML VIAL IV PRN (00:13)
[2018-03-06] MEDS: Heparin VIAL(*) 5000 UNITS/ML VIAL (FIVE THOUSAND) SUBCUT SCH (05:07)
[2018-03-06] MEDS: Mometasone/Formoter 100/5 MDI INH SCH (07:46)
[2018-03-06] MEDS: Polyethylene Glycol 3350* 17 GM PACKET PO SCH (08:23)
[2018-03-06] MEDS: Aspirin 81 mg CHEW TAB* 81 MG TAB.CHEW PO SCH (08:23)
[2018-03-06] MEDS: Clopidogrel TAB* 75 MG PO SCH (08:25)
[2018-03-06] MEDS: Isosorbide Mononitrate ER TAB* 30 MG PO SCH (08:26)
[2018-03-06] MEDS: Valsartan TAB* 160 MG PO SCH (08:27)
[2018-03-06] MEDS: CMCS Pantoprazole TAB (NF) 40 MG TAB PO SCH (08:30)
[2018-03-06] MEDS ORDERED: Atenolol TAB* 25 MG PO SCH (09:00)
[2018-03-06 12:53] VITALS: BP 108/58
--- NOTE | 2018-03-07 05:09 | DS ---
CC: Dr. Gordon; Dr. Tacos Arriaga; Dr. Keene DISCHARGE SUMMARY: DATE OF ADMISSION: 03/03/18 DATE OF DISCHARGE: 03/06/18 PRIMARY CARE PROVIDER: Dr. Gordon. PARASITOLOGIST: Dr. Tacos Arriaga. NEUROLOGIST: Dr. Keene. DISCHARGE DIAGNOSES: 1. Transient ischemic attack. 2. Vasovagal near syncope. SECONDARY DIAGNOSES: 1. Coronary artery disease, status post CABG. 2. Asthma. 3. Hypertension. 4. Hyperlipidemia. 5. Renal cell carcinoma, status post partial left nephrectomy. 6. Peptic ulcer disease. 7. Transient ischemia attack. 8. Hyperglycemia while on steroids. MEDICATION LIST: 1. Valsartan 160 mg p.o. b.i.d. 2. Pantoprazole 40 mg p.o. daily. 3. Nitroglycerin 0.4 mg q.5 minutes p.r.n. chest pain. 4. Multivitamin 1 capsule p.o. daily. 5. Montelukast 10 mg p.o. at bedtime. 6. Mometasone 2 sprays to both nares daily. 7. Imdur 15 mg p.o. daily. 8. Cholecalciferol 1000 units p.o. daily. 9. Hydrocortisone 2.5% cream topical t.i.d. as needed for hemorrhoids. 10. Advair 100/50 one puff inhaled b.i.d. 11. Atorvastatin 80 mg p.o. daily. 12. Albuterol HFA 2 puffs inhaled q.4 hours p.r.n. shortness of breath and wheezing. 13. Premarin vaginal cream twice a week. New Medications: 1. Aspirin 81 mg p.o. daily. 2. Clopidogrel 75 mg p.o. daily. Medication Change: Atenolol 12.5 mg p.o. daily. HOSPITAL COURSE: Mrs. Reddy is a 77-year-old lady with past medical history as stated above that presented to the emergency room after an episode of aphasia while talking on the phone. The episode lasted about a minute. For more details about her presentation, I refer you to her history and physical. CT of the brain showed findings consistent with chronic microvascular disease and a stable lacunar infarction in the right subinsular region. MRI of the brain was negative for acute infarction. 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 Transthoracic echocardiogram showed ejection fraction greater than 65% with left atrium [id number] dilated, status post mitral valve repair. Mean gradient across the mitral valve is 3 mmHg, mild annular echo brightness possible ring. Carotid ultrasound, mild-to- moderate plaque present within the carotid bulbs and proximal internal carotid arteries with no hemodynamically significant stenosis seen. The patient was seen in consultation by neurology (Dr. Keene) and his impression is that the patient had a possible mild TIA as it was very brief, but does sound as though she was having significant language problem. In regards to her cerebrovascular symptoms, Dr. 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 Of note is the fact that the patient had a TIA in 2016 and at that point, she was started on aspirin and Plavix. She thinks that she had another event last year while she was in [place] and at that point, she had been switched to Aggrenox and now she has this other episode, so I really believe further workup for an embolic source will be really important so the patient was advised to follow up with her wirer helper, Dr. Tacos Arriaga, as soon as possible to make arrangements for an event monitor placement. He reviewed the patient's MRI images and he did not agree with the initial radiology finding of pseudonormalization. So he discussed the images with Dr. Espinosa, neuroradiologist, and he agreed that the MRI did not show any pseudonormalization or evidence of recent infarct. The patient had a clinical assessment team called due to a near syncopal episode. She went to the bathroom, had a bowel movement, and when she returned , she felt lightheaded followed by flushing sensation. She sat down and felt very weak, so clinical assessment team was called. On my arrival, the patient was pale, diaphoretic, sitting on a chair. We were unable to measure her blood pressure while sitting up. By the time we moved her to the bed, her blood pressure was 100/40 with a heart rate in the 40s. Her fingerstick was 135. Impression was that this episode was likely vasovagal and she received IV hydration and later on felt well. She was seen in consultation by Cardiology (Dr. Key) and he agreed that the patient probably had vasovagal response probably predominantly vasodepressor, but likely some very mild cardioinhibitory effect. Obviously, a pacemaker is not indicated at this time. He recommended cutting down her atenolol from 50 to 12.5 mg p.o. daily as she may do better from a symptom standpoint with having a resting elevated above guideline based resting blood pressure long term care administrator. He also felt that dehydration was playing a role in her symptoms, so recommended further hydration and the patient was educated to increase her fluid intake. With her history of TIA and especially given her history of mitral valve repair, he recommended followup with her wirer helper for consideration of extended rhythm monitoring (30-day event monitor to evaluate for AFib/flutter as a cause of TIA) to see if she would benefit from long-term anticoagulation. The patient had resolution of her symptoms. She was able to ambulate around the unit with no symptoms and she was thought to be stable for discharge. PHYSICAL EXAMINATION: Vital Signs: Temperature 97.1, heart rate is 73, respiratory rate is 16, oxygen saturation 97% on room air, blood pressure is 108 /58. General: The patient is a pleasant elderly lady, sitting up in a chair, in no acute distress. CVS: Normal S1, S2. Regular rate and rhythm. Chest: Breath sounds bilaterally with no added sounds. Neuro: She is alert and oriented x3. Able to move all 4 extremities. Face is symmetric. Speech is clear. DIET: Heart healthy diet. ACTIVITIES: As tolerated. DISPOSITION: To home. STATUS WHILE IN THE HOSPITAL: Inpatient. Please keep in mind this is a summarized version of this patient's hospital stay. If you need more information, please feel free to call me at [phone] or please obtain full medical records. TIME SPENT: Approximately 45 minutes were spent to complete this discharge. [id number]/CPS #: [id number] GERSON
== END 2018-03-06 14:15 | disposition home or self-care (01) | DRG 69 ==
LOC: ED 15:48 → MEDTELE 18:11 → OBSVTOIN 03-04 14:55
PROVIDERS: ADMIT Internal Medicine; ATTEND Internal Medicine
DX: G45.9 Transient cerebral ischemic attack, unspecified (principal); R17 Unspecified jaundice; I10 Essential (primary) hypertension; I25.10 Atherosclerotic heart disease of native coronary artery without angina pectoris; J45.909 Unspecified asthma, uncomplicated; M19.90 Unspecified osteoarthritis, unspecified site; R40.2412 Glasgow coma scale score 13-15, at arrival to emergency department; R29.700 NIHSS score 0; F03.90 Unspecified dementia, unspecified severity, without behavioral disturbance, psychotic disturbance, mood disturbance, and anxiety; R55 Syncope and collapse; E86.0 Dehydration; E78.5 Hyperlipidemia, unspecified; K27.9 Peptic ulcer, site unspecified, unspecified as acute or chronic, without hemorrhage or perforation; K64.9 Unspecified hemorrhoids; K59.00 Constipation, unspecified; R73.9 Hyperglycemia, unspecified; T38.0X5A Adverse effect of glucocorticoids and synthetic analogues, initial encounter; R00.1 Bradycardia, unspecified; Z66 Do not resuscitate; Z95.1 Presence of aortocoronary bypass graft; I25.2 Old myocardial infarction; Z95.2 Presence of prosthetic heart valve; Z90.5 Acquired absence of kidney; Z90.89 Acquired absence of other organs; Z82.49 Family history of ischemic heart disease and other diseases of the circulatory system; Z85.53 Personal history of malignant neoplasm of renal pelvis; Z90.710 Acquired absence of both cervix and uterus; Z88.2 Allergy status to sulfonamides; Z88.8 Allergy status to other drugs, medicaments and biological substances; Z79.82 Long term (current) use of aspirin; Z79.02 Long term (current) use of antithrombotics/antiplatelets; Y92.9 Unspecified place or not applicable; Z86.73 Personal history of transient ischemic attack (TIA), and cerebral infarction without residual deficits; Z90.711 Acquired absence of uterus with remaining cervical stump; Z23 Encounter for immunization
CPT/HCPCS: 36415; 70450; 70551; 80048; 80053; 80061; 81003; 81015; 83036; 83605; 84484; 85025; 85610; 85730; 87086; 90686; 93005; 93306; 93880; 94640; 99283; A9270-GY; G0378; J0360; J1644

== ENCOUNTER 2018-12-18 22:43 | Emergency (ER) | payer MEDICARE, BC ==
--- NOTE | 2018-12-18 23:13 | ED ---
HPI Cardiac - HPI Summary HPI Summary: This patient is an 78 year old female presenting to [facility] with a chief complaint of bleeding over the left chest wall. The patient is on Plavix and just had a loop recorder placed and the site has not stopped bleeding. The patient states the medication instructions were to stop taking the wrong medication, one other then her Plavix. Therefore, she still took her Plavix and believes this is the reason it is still bleeding. - History of Current Complaint Chief Complaint: EDGeneral Stated Complaint: LOOP IMPLANT, BLEEDING PER PT Time Seen by Provider: 12/18/18 23:04 Hx Obtained From: Patient Onset/Duration: Started Hours Ago Timing: Constant Pain Intensity: 0 Pain Scale Used: 0-10 Numeric - Additional Pertinent History Primary Care Physician: SALAS - Allergy/Home Medications Allergies/Adverse Reactions: Allergies Allergy/AdvReac Type Severity Reaction Status Date / Time Adhesive Tape Allergy Rash And Verified 12/19/18 00:01 Itching Sulfa (Sulfonamide Allergy Rash Verified 12/19/18 00:01 Antibiotics) LUBRICANT Allergy See Comment Uncoded 12/19/18 00:01 Home Medications: Home Medications ALPRAZolam TAB* [Xanax TAB*] 0.25 mg PO BEDTIME PRN 12/19/18 [History Confirmed 12/19/18] Carvedilol TAB* [Coreg TAB*] 6.25 mg PO BID 12/19/18 [History Confirmed 12/19/18 ] Cyanocobalamin TAB* [Vitamin B12 TAB*] 1,000 mcg PO DAILY 12/19/18 [History Confirmed 12/19/18] amLODIPine TAB* [Norvasc 5 mg TAB*] 2.5 mg PO DAILY 12/19/18 [History Confirmed 12/19/18] PMH/Surg Hx/FS Hx/Imm Hx Endocrine/Hematology History: Denies: Hx Diabetes Cardiovascular History: Reports: Hx Coronary Artery Disease, Hx Hypercholesterolemia, Hx Hypertension - on meds, Hx Valvular Heart Disease - Mitral V regurgitation, Other Cardiovascular Problems/Disorders - [place], mitral valve replacement Denies: Hx Congestive Heart Failure, Hx Pacemaker/ICD, Hx Peripheral Vascular Disease Respiratory History: Reports: Hx Asthma GI History: Reports: Hx Gastrointestinal Bleed, Hx Ulcer, Other GI Disorders - peptic ulcer disease History: Reports: Other Problems/Disorders - left kidney ca-tumor removed Denies: Hx Renal Disease Musculoskeletal History: Reports: Hx Arthritis Sensory History: Reports: Hx Contacts or Glasses Denies: Hx Hearing Aid Opthamlomology History: Reports: Hx Contacts or Glasses Neurological History: Reports: Hx CVA, Hx Transient Ischemic Attacks (TIA) Denies: Hx Seizures Psychiatric History: Denies: Hx Panic Disorder - Cancer History Cancer Type, Location and Year: left kidney 2006, tumor removed - Surgical History Surgery Procedure, Year, and Place: MITRAL VALVE REPAIR, appendectomy, CABG, tonsillectomy, LUMPECTOMY, KIDNEY SURGERY, partial hysterectomy, sinus, tonsilectomy - Immunization History Date of Influenza Vaccine: fall 2014 Infectious Disease History: No Infectious Disease History: Reports: Hx Shingles - 2006 Denies: Traveled Outside the [place] in Last 30 Days - Family History Known Family History: Positive: Cardiac Disease - Social History Alcohol Use: Rare Alcohol Amount: 2 glasses of wine weekly Hx Substance Use: No Substance Use Type: Reports: None Hx Tobacco Use: No Smoking Status (MU): Never Smoked Tobacco Review of Systems Negative: Fever Positive: Other - Bleeding, chest All Other Systems Reviewed And Are Negative: Yes Physical Exam - Summary Physical Exam Summary: Appearance: Well-appearing, Well-nourished, lying in bed comfortably Skin: Warm, dry, no obvious rash Eyes: sclera anicteric, no conjunctival pallor ENT: mucous membranes moist, pharynx appears normal Neck: Supple, nontender Respiratory: Clear to auscultation, no signs of respiratory distress Cardiovascular: Normal S1, S2. No murmurs. Normal distal pulses in tibial and radial bilaterally. Abdomen: Soft, nontender, normal active bowel sounds present Musculoskeletal: Normal, Strength/ROM Intact Neurological: A&Ox3, awake and alert, mentation is normal, speech is fluent and appropriate Psychiatric: affect is normal, does not appear anxious or depressed Triage Information Reviewed: Yes Vital Signs On Initial Exam: Initial Vitals Temp Pulse Resp BP Pulse Ox 97.7 F 81 18 150/101 96 12/18/18 22:46 12/18/18 22:46 12/18/18 22:46 12/18/18 22:46 12/18/18 22:46 Vital Signs Reviewed: Yes Diagnostics - Vital Signs Vital Signs Temp Pulse Resp BP Pulse Ox 12/18/18 22:46 97.7 F 81 18 150/101 96 - Laboratory Lab Statement: Any lab studies that have been ordered have been reviewed, and results considered in the medical decision making process. Disposition - Course Course Of Treatment: This patient is an 78 year old female presenting to [facility] with a chief complaint of bleeding over the left chest wall. A couple of sutures were placed to stop the bleeding of the incision over the left chest wall for loop recorder placement by her party plan sales host/hostess. A plan for discharge was discussed with the patient and she was agreeable with this plan. - Diagnoses Provider Diagnoses: Bleeding at insertion site Discharge - Sign-Out/Discharge Documenting (check all that apply): Patient Departure - Discharge Patient Received Moderate/Deep Sedation with Procedure: No - Discharge Plan Prescriptions: Cephalexin CAP* [Keflex CAP*] 500 mg PO QID #20 cap Referrals: Eveline Gordon MD [Primary Care Provider] - Additional Instructions: Contact your party plan sales host/hostess on Friday to let them know about this complication and that I had to place a couple of sutures to stop the bleeding. - Attestation Statements Document Initiated by Scribe: Yes Documenting Scribe: Oumar Ramon Provider For Whom Marco Antonio is Documenting (Include Credential): Jimmy Hall MD Scribe Attestation: Oumar Romero, scribed for Jimmy Hall MD on 12/19/18 at 0256. Status of Scribe Document: Ready
[2018-12-19] MEDS ORDERED: Cephalexin CAP* 500 MG PO ONE (02:53)
[2018-12-19 03:09] VITALS: BP 135/69
== END 2018-12-19 03:08 | disposition home or self-care (01) ==
LOC: ED 22:43
DX: I97.618 Postprocedural hemorrhage of a circulatory system organ or structure following other circulatory system procedure (principal); R07.89 Other chest pain; Z95.818 Presence of other cardiac implants and grafts; Z88.2 Allergy status to sulfonamides; I25.10 Atherosclerotic heart disease of native coronary artery without angina pectoris; I10 Essential (primary) hypertension; I25.2 Old myocardial infarction; Z95.2 Presence of prosthetic heart valve; I73.9 Peripheral vascular disease, unspecified; Z86.73 Personal history of transient ischemic attack (TIA), and cerebral infarction without residual deficits; Z85.520 Personal history of malignant carcinoid tumor of kidney; E78.00 Pure hypercholesterolemia, unspecified
CPT/HCPCS: 99282; A9270-GY